=== PATIENT | male | born 1930 | race Caucasian/White ===

== ENCOUNTER 2016-10-30 10:41 | Emergency (ER) | payer OTHER ==
--- NOTE | 2016-10-30 11:10 | PDOC ---
History of Present Illness - General History Source: Patient Exam Limitations: Language Barrier - History of Present Illness Initial Comments: 10/30/16 11:51 The patient is a 86 year old male, with a significant past medical history of prostate CA, COPD, HTN, renal insufficiency, and hypercholesterolemia, who presents to the emergency department with chills, hot flashes, and diaphoresis since this morning. The patient reports around 5am, picking up his , and after was unable to sleep secondary to sweating and chills. Patient notes during this episode, noting his BP elevated. He denies any changes in vision. He denies any recent fevers, chills, headache or dizziness. He denies any recent nausea, vomit, diarrhea or constipation. He denies any recent chest pain or shortness of breath. He denies any recent dysuria, frequency, urgency or hematuria. Allergies: NKA Past surgical history: CAD s/p stents x2 Social History: Former Smoker. Denies EtOH use and recreational drug use. Primary Care Physician: <Victor Hugo Flores - Last Filed: 10/30/16 12:01> <Lashell Krishna - Last Filed: 10/30/16 18:06> - General Stated Complaint: HEAT FLASHES Time Seen by Provider: 10/30/16 10:59 Past History <Victor Hugo Flores - Last Filed: 10/30/16 12:01> - Past Medical History Anemia: No Asthma: No Cancer: Yes (prostate ca) Cardiac Disorders: Yes CVA: No COPD: Yes CHF: No Dementia: No Diabetes: No GI Disorders: No Disorders: No HTN: Yes Hypercholesterolemia: Yes Liver Disease: No Seizures: No Thyroid Disease: No - Surgical History Abdominal Surgery: No Appendectomy: No Cardiac Surgery: Yes (STENT) Cholecystectomy: Yes Lung Surgery: No Neurologic Surgery: No Orthopedic Surgery: No - Psycho/Social/Smoking Cessation Hx Anxiety: No Suicidal Ideation: No Smoking Status: Yes Smoking History: Former smoker (1-1.5 ppd for 60 yrs) Have you smoked in the past 12 months: No Number of Cigarettes Smoked Daily: 0 If you are a former smoker, when did you quit?: 2009 Hx Alcohol Use: No Drug/Substance Use Hx: No Substance Use Type: None Hx Substance Use Treatment: No <Lashell Krishna - Last Filed: 10/30/16 18:06> - Past Medical History Allergies/Adverse Reactions: Allergies Allergy/AdvReac Type Severity Reaction Status Date / Time No Known Allergies Allergy Verified 10/30/16 11:24 Home Medications: Ambulatory Orders Amlodipine Bes/Olmesartan Med [Ericka 5-20 mg Tablet] 1 each PO DAILY 03/24/15 Aspirin [Aspirin EC] 81 mg PO DAILY 03/24/15 Gabapentin 200 mg PO TID 03/24/15 Methimazole 10 mg PO DAILY 03/24/15 Metoprolol Succinate [Toprol XL -] 50 mg PO DAILY 03/24/15 Montelukast Na [Singulair -] 10 mg PO HS 03/24/15 Nitroglycerin [Nitrostat] 0.4 mg SL PRN PRN 03/24/15 Simvastatin [Zocor -] 10 mg PO DAILY 03/24/15 Lubiprostone [Amitiza] 24 mcg PO DAILY 08/29/15 Pantoprazole Sodium [Protonix -] 40 mg PO DAILY 08/29/15 Quetiapine Fumarate [Seroquel -] 25 mg PO HS 08/29/15 Review of Systems - Review of Systems Able to Perform ROS?: Yes Comments:: 10/30/16 11:50 GENERAL/CONSTITUTIONAL: +Hot flashes, diaphoresis, and chills. No: fever, weakness, loss of appetite. HEAD, EYES, EARS, NOSE AND THROAT: No: change in vision, ear pain, discharge, sore throat, throat swelling. CARDIOVASCULAR: No: chest pain, lightheadedness, palpitations, syncope RESPIRATORY: No: cough, shortness of breath, wheezing, hemoptysis, stridor. GASTROINTESTINAL: No: nausea, vomiting, diarrhea, abdominal cramping, rectal bleeding, constipation. GENITOURINARY: No: dysuria, hematuria, frequency, urgency, flank pain. MUSCULOSKELETAL: No: back pain, neck pain, joint pain, muscle swelling or pain SKIN : No: lesions, pallor, rash or easy bruising. NEUROLOGIC: No: headache, vertigo, paresthesias, weakness ENDOCRINE: No: unexplained weight gain or loss HEMATOLOGIC/LYMPHATIC: No: anemia, easy bleeding, swelling nodes. <Victor Hugo Flores - Last Filed: 10/30/16 12:01> *Physical Exam - Vital Signs Last Vital Signs Temp Pulse Resp BP Pulse Ox 97.9 F 79 20 151/87 97 10/30/16 11:24 10/30/16 11:24 10/30/16 11:24 10/30/16 11:24 10/30/16 11:24 - Physical Exam Comments: 10/30/16 12:02 GENERAL: The patient is in no acute distress. HEAD: Normal with no signs of trauma. EYES: PERRLA, EOMI, sclera anicteric, conjunctiva clear. ENT: Ears normal, nares patent, oropharynx clear without exudates. Moist mucous membranes. NECK: Normal range of motion, supple without lymphadenopathy, JVD, or masses. LUNGS: Breath sounds equal, clear to auscultation bilaterally. No wheezes, and no crackles. HEART: Regular rate and rhythm, normal S1 and S2 without murmur, rub or gallop. ABDOMEN: Soft, nontender, normoactive bowel sounds. No guarding, no rebound. No masses palpable. EXTREMITIES: Normal range of motion, no edema. No clubbing or cyanosis. No erythema, or tenderness. NEUROLOGICAL: Cranial nerves II through XII grossly intact. Normal speech. No focal neurological deficits. MUSCULOSKELETAL: Back non-tender to palpation, no CVA tenderness SKIN: Warm, Dry, normal turgor, no rashes or lesions noted. <Victor Hugo Flores - Last Filed: 10/30/16 12:01> ED Treatment Course - LABORATORY CBC & Chemistry Diagram: 10/30/16 11:53 10/30/16 11:53 <Lashell Krishna - Last Filed: 10/30/16 18:06> Medical Decision Making - Medical Decision Making 10/30/16 11:53 Pt comes with elevated BP and chills that began this AM. He states that he picked up his from the hospital today at 5AM< and when he got home, he was unable to sleep and he feels like water is runnning in his forehead. His BP on his home monitor was elevated. 10/30/16 13:[address] is normal. CXR pending Labs normal Pt will be likely discharged. 10/30/16 14:06 Pt has a positive CPK; we will get a second set on the patient. 10/30/16 18:05 Second cardiac enzyme is normal; pt has 2 normal EKGs. No change of EKG 10/30/16 18:05 Stable for discahrge home. <Lashell Krishna - Last Filed: 10/30/16 18:06> *DC/Admit/Observation/Transfer - Attestations Scribe Attestion: 10/30/16 11:43 Documentation prepared by Victor Hugo Flores, acting as medical instrument technician for Lashell Krishna MD. <Victor Hugo Flores - Last Filed: 10/30/16 12:01> - Discharge Dispostion Admit: No <Lashell Krishna - Last Filed: 10/30/16 18:06> Diagnosis at time of Disposition: Chills, Diaphoresis - Discharge Dispostion Disposition: HOME Condition at time of disposition: Improved - Referrals Referrals: Hugo Crespo MD [Primary Care Provider] - - Patient Instructions Printed Discharge Instructions: DI for High Blood Pressure, How to Monitor Your Blood Pressure at Home
[2016-10-30 11:37] VITALS: BMI 27.4
[2016-10-30] MEDS ORDERED: VALSARTAN 40 MG TABLET (FP) PO ONE (11:51)
[2016-10-30] MEDS ORDERED: POLYETHYLENE GLYCOL 3350 119 GM BTL PO ONE (12:02)
[2016-10-30 12:36] LABS: BASOPHIL 1.2 % (0-2.0); EOSINOPHIL 1.4 % (0-4.5); MCH 26.4 pg (25.7-33.7); MCHC 32.3 g/dl (32.0-35.9); MEAN CELL VOLUME 81.7 fl (80-96); MEAN PLT VOLUME 7.7 fl (7.5-11.1); NEUTROPHILS 77.6 % (42.8-82.8); PLATELET COUNT 267 K/MM3 (134-434); RDW 14.7 % (11.9-15.9); WHITE BLOOD COUNT 7.2 K/mm3 (4.0-10.0)
--- NOTE | 2016-10-30 12:38 | EKG ---
Test Reason : Blood Pressure : / mmHG Vent. Rate : 061 BPM Atrial Rate : 061 BPM P-R Int : 146 ms QRS Dur : 084 ms QT Int : 428 ms P-R-T Axes : 063 013 052 degrees QTc Int : 430 ms NORMAL SINUS RHYTHM , QS IN V2 MAY BE DUE TO TECHNICAL AND/OR POSITIONAL FACTORS, POSSIBILITY OF ANTEROSEPTAL CO CANNOT BE EXCLUDED WHEN COMPARED WITH ECG OF 29-AUG-2015 17:56, CHANGES MENTIOED ABOVE. CORELATE CLINICALLY. Confirmed by TOO SANTANA MD ([id number]) on 10/30/2016 12:38:28 PM Referred By: Confirmed By:TOO SANTANA MD
[2016-10-30 12:49] LABS: INR 1.12 (0.82-1.09); PROTHROMBIN TIME (PATIENT) 12.3 SEC (9.98-11.88)
[2016-10-30 13:01] LABS: ALBUMIN 3.9 g/dl (3.4-5.0); ANION GAP 9 (8-16); BILIRUBIN,TOTAL 0.5 mg/dL (0.2-1.0); CALCIUM 8.5 mg/dL (8.5-10.1); CO2 29 mmol/L (21-32); CREATININE 1.2 mg/dL (0.7-1.3); GLUCOSE,RANDOM 116 mg/dL (74-106); SGOT/AST 17 U/L (15-37); SGPT/ALT 23 U/L (12-78); TOT PROT 7.3 g/dl (6.4-8.2)
[2016-10-30 13:04] LABS: ALK PHOS 99 U/L (45-117); TROPONIN I < 0.02 ng/ml (0.00-0.05)
[2016-10-30] MEDS ORDERED: VALSARTAN 80 MG TABLET (UD) ONE (13:05)
[2016-10-30 14:47] VITALS: PULSE 70
[2016-10-30] MEDS ORDERED: ACETAMINOPHEN 325 MG TABLET (FP) PO ONE (16:36)
[2016-10-30] MEDS ORDERED: ACETAMINOPHEN 325 MG TABLET (FP) ONE (16:40)
[2016-10-30 16:46] VITALS: TEMP 98.5
[2016-10-30 17:35] LABS: TROPONIN I < 0.02 ng/ml (0.00-0.05)
[2016-10-30 17:47] VITALS: BP 147/76
--- NOTE | 2016-10-31 11:49 | EKG ---
Test Reason : Blood Pressure : / mmHG Vent. Rate : 064 BPM Atrial Rate : 064 BPM P-R Int : 140 ms QRS Dur : 080 ms QT Int : 420 ms P-R-T Axes : 068 013 058 degrees QTc Int : 433 ms NORMAL SINUS RHYTHM NORMAL ECG WHEN COMPARED WITH ECG OF 30-OCT-2016 11:38, NO SIGNIFICANT CHANGE WAS FOUND Confirmed by ASHTYN JEFF MD ([id number]) on 10/31/2016 11:49:17 AM Referred By: Confirmed By:ASHTYN JEFF MD
== END 2016-10-30 18:37 | disposition home or self-care (01) ==
LOC: JER 10:41
DX: I25.10 Atherosclerotic heart disease of native coronary artery without angina pectoris (principal); I10 Essential (primary) hypertension; Z95.5 Presence of coronary angioplasty implant and graft; E78.00 Pure hypercholesterolemia, unspecified; J44.9 Chronic obstructive pulmonary disease, unspecified; Z87.891 Personal history of nicotine dependence; Z85.46 Personal history of malignant neoplasm of prostate
CPT/HCPCS: 36415; 70450-TC; 71020-TC; 80053; 82550; 82553; 84484; 85025; 85610; 93005; 93010; 99284-25

== ENCOUNTER 2017-02-14 06:10 | Emergency (ER) | payer OTHER ==
[2017-02-14 06:34] VITALS: TEMP 98.7; BMI 24.9
[2017-02-14 06:39] LABS: BASOPHIL 1.1 % (0-2.0); EOSINOPHIL 5.2 % (0-4.5); MCH 26.5 pg (25.7-33.7); MEAN CELL VOLUME 80.3 fl (80-96); MEAN PLT VOLUME 6.9 fl (7.5-11.1); NEUTROPHILS 64.8 % (42.8-82.8); PLATELET COUNT 400 K/MM3 (134-434); WHITE BLOOD COUNT 6.9 K/mm3 (4.0-10.0)
--- NOTE | 2017-02-14 06:51 | PDOC ---
History of Present Illness - General Stated Complaint: CHEST PAIN History Source: Patient - History of Present Illness Initial Comments: 02/14/17 06:48 Patient is an 86 y.o. male with a PMH of HTN, CAD (s/p stent) who present with acute onset of chest pain that woke him from sleeping. Patient denies any associated diaphoresis, lightheadedness, shortness of breath or palpitations. Patient took two sublingual nitroglycerin and the chest pain largely resolved, however he came to ED at his 's request. Past History - Past Medical History Allergies/Adverse Reactions: Allergies Allergy/AdvReac Type Severity Reaction Status Date / Time No Known Allergies Allergy Verified 02/14/17 06:32 Home Medications: Ambulatory Orders Amlodipine Bes/Olmesartan Med [Ericka 5-20 mg Tablet] 1 each PO DAILY 03/24/15 Aspirin [Aspirin EC] 81 mg PO DAILY 03/24/15 Gabapentin 200 mg PO TID 03/24/15 Methimazole 10 mg PO DAILY 03/24/15 Metoprolol Succinate [Toprol XL -] 50 mg PO DAILY 03/24/15 Montelukast Na [Singulair -] 10 mg PO HS 03/24/15 Nitroglycerin [Nitrostat] 0.4 mg SL PRN PRN 03/24/15 Simvastatin [Zocor -] 10 mg PO DAILY 03/24/15 Lubiprostone [Amitiza] 24 mcg PO DAILY 08/29/15 Pantoprazole Sodium [Protonix -] 40 mg PO DAILY 08/29/15 Quetiapine Fumarate [Seroquel -] 25 mg PO HS 08/29/15 Anemia: No Asthma: No Cancer: Yes (prostate ca) Cardiac Disorders: Yes CVA: No COPD: Yes CHF: No Dementia: No Diabetes: No GI Disorders: No Disorders: No HTN: Yes Hypercholesterolemia: Yes Liver Disease: No Seizures: No Thyroid Disease: No - Surgical History Abdominal Surgery: No Appendectomy: No Cardiac Surgery: Yes (STENT) Cholecystectomy: Yes Lung Surgery: No Neurologic Surgery: No Orthopedic Surgery: No - Immunization History Immunization Up to Date: Yes - Suicide/Smoking/Psychosocial Hx Smoking Status: Yes Smoking History: Never smoked Have you smoked in the past 12 months: No Number of Cigarettes Smoked Daily: 0 If you are a former smoker, when did you quit?: 2009 Information on smoking cessation initiated: No Hx Alcohol Use: No Drug/Substance Use Hx: No Substance Use Type: None Hx Substance Use Treatment: No Review of Systems - Review of Systems Constitutional: No: Chills, Diaphoresis, Fever Respiratory: No: Shortness of Breath Cardiac (ROS): Yes: Chest Pain. No: Lightheadedness, Palpitations ABD/GI: No: Constipated, Diarrhea, Nausea, Vomiting All Other Systems: Reviewed and Negative *Physical Exam - Vital Signs Last Vital Signs Temp Pulse Resp BP Pulse Ox 98.7 F 75 14 119/73 98 02/14/17 06:32 02/14/17 06:32 02/14/17 06:32 02/14/17 06:32 02/14/17 06:32 - Physical Exam General Appearance: Yes: Nourished Neck: positive: Trachea midline, Supple Respiratory/Chest: positive: Lungs Clear Cardiovascular: positive: S1, S2 Gastrointestinal/Abdominal: positive: Normal Bowel Sounds, Soft Extremity: positive: Normal Capillary Refill, Normal Inspection Integumentary: positive: Normal Color, Dry, Warm Neurologic: positive: Fully Oriented, Alert ED Treatment Course - LABORATORY CBC & Chemistry Diagram: 02/14/17 06:21 02/14/17 06:21 - ADDITIONAL ORDERS Additional order review: 02/14/17 06:21 RBC 4.42 MCV 80.3 MCHC 33.0 RDW 15.0 MPV 6.9 L Neutrophils % 64.8 Lymphocytes % 21.0 Monocytes % 7.9 Eosinophils % 5.2 H Basophils % 1.1
[2017-02-14 07:08] LABS: INR 1.12 (0.82-1.09); PROTHROMBIN TIME (PATIENT) 12.7 SEC (9.98-11.88)
[2017-02-14 07:11] LABS: ACTIVATED PTT 37.4 SECONDS (26.9-34.4)
[2017-02-14 07:18] LABS: ANION GAP 7 (8-16); BILIRUBIN,TOTAL 0.4 mg/dL (0.2-1.0); CALCIUM 8.3 mg/dL (8.5-10.1); CO2 27 mmol/L (21-32); CREATININE 1.3 mg/dL (0.7-1.3); GLUCOSE,RANDOM 113 mg/dL (74-106); MAGNESIUM 2.1 mg/dL (1.8-2.4); SGOT/AST 25 U/L (15-37); SGPT/ALT 29 U/L (12-78); TOT PROT 6.4 g/dl (6.4-8.2)
[2017-02-14 07:20] LABS: ALK PHOS 83 U/L (45-117); TROPONIN I < 0.02 ng/ml (0.00-0.05)
--- NOTE | 2017-02-14 07:26 | PDOC ---
Attending Attestation - Resident Resident Name: Koby Taveras - ED Attending Attestation I have performed the following: I have examined & evaluated the patient, The case was reviewed & discussed with the resident, I agree w/resident's findings & plan, Exceptions are as noted - Medical Decision Making 02/14/17 07:25 I, Dr. Marta Kerr, DO, attest that this document has been prepared under my direction and personally reviewed by me in its entirety. I further attest, that it accurately reflects all work, treatment, procedures and medical decision -making performed by me.
--- NOTE | 2017-02-14 08:19 | PDOC ---
History of Present Illness - General History Source: Patient Exam Limitations: No Limitations - History of Present Illness Initial Comments: 02/14/17 08:24 The patient is a 86 year old male, with a significant past medical history of prostate CA, COPD, HTN, renal insufficiency, and hypercholesterolemia, who presents to the emergency department with left sided chest pain since this morning. The patient reports having a 30 min episode of chest pain this morning that was alleviated with one treatment of nitro. Patient reports during this episode having no radiation of his pain, and ranks his chest during that episode a 8/10 in pain intensity. Patient notes since having no chest pain at this time but has complaints of SOB and a productive cough, bringing up white septum. He also has complaints of nausea and abdominal bloating for the past 2 days. Reports having normal bowel movements. He denies any recent fevers, chills , headache or dizziness. He denies any recent vomit, diarrhea or constipation. He denies any recent dysuria, frequency, urgency or hematuria. Allergies: NKA Past surgical history: None reported. Social History: Nonsmoker. Denies EtOH use and recreational drug use. Primary Care Physician: <Victor Hugo Flores - Last Filed: 02/14/17 08:24> <Marta Kerr - Last Filed: 02/14/17 10:05> - General Chief Complaint: Chest Pain Stated Complaint: CHEST PAIN Time Seen by Provider: 02/14/17 06:12 Past History <Victor Hugo Flores - Last Filed: 02/14/17 08:24> - Past Medical History Anemia: No Asthma: No Cancer: Yes (prostate ca) Cardiac Disorders: Yes CVA: No COPD: Yes CHF: No Dementia: No Diabetes: No GI Disorders: No Disorders: No HTN: Yes Hypercholesterolemia: Yes Liver Disease: No Seizures: No Thyroid Disease: No - Surgical History Abdominal Surgery: No Appendectomy: No Cardiac Surgery: Yes (STENT) Cholecystectomy: Yes Lung Surgery: No Neurologic Surgery: No Orthopedic Surgery: No - Immunization History Immunization Up to Date: Yes - Suicide/Smoking/Psychosocial Hx Smoking Status: Yes Smoking History: Never smoked Have you smoked in the past 12 months: No Number of Cigarettes Smoked Daily: 0 If you are a former smoker, when did you quit?: 2009 Information on smoking cessation initiated: No Hx Alcohol Use: No Drug/Substance Use Hx: No Substance Use Type: None Hx Substance Use Treatment: No <Marta Kerr - Last Filed: 02/14/17 10:05> - Past Medical History Allergies/Adverse Reactions: Allergies Allergy/AdvReac Type Severity Reaction Status Date / Time No Known Allergies Allergy Verified 02/14/17 06:32 Home Medications: Ambulatory Orders Amlodipine Bes/Olmesartan Med [Ericka 5-20 mg Tablet] 1 each PO DAILY 03/24/15 Aspirin [Aspirin EC] 81 mg PO DAILY 03/24/15 Gabapentin 200 mg PO TID 03/24/15 Methimazole 10 mg PO DAILY 03/24/15 Metoprolol Succinate [Toprol XL -] 50 mg PO DAILY 03/24/15 Montelukast Na [Singulair -] 10 mg PO HS 03/24/15 Nitroglycerin [Nitrostat] 0.4 mg SL PRN PRN 03/24/15 Simvastatin [Zocor -] 10 mg PO DAILY 03/24/15 Lubiprostone [Amitiza] 24 mcg PO DAILY 08/29/15 Pantoprazole Sodium [Protonix -] 40 mg PO DAILY 08/29/15 Quetiapine Fumarate [Seroquel -] 25 mg PO HS 08/29/15 Review of Systems - Review of Systems Able to Perform ROS?: Yes Comments:: 02/14/17 08:24 GENERAL/CONSTITUTIONAL: No fever or chills. No weakness. HEAD, EYES, EARS, NOSE AND THROAT: No change in vision. No ear pain or discharge. No sore throat. GASTROINTESTINAL: +nausea No vomiting, diarrhea or constipation. GENITOURINARY: No dysuria, frequency, or change in urination. CARDIOVASCULAR: +chest pain and shortness of breath. RESPIRATORY: +cough No wheezing, or hemoptysis. MUSCULOSKELETAL: No joint or muscle swelling or pain. No neck or back pain. SKIN: No rash NEUROLOGIC: No headache, vertigo, loss of consciousness, or change in strength/ sensation. ENDOCRINE: No increased thirst. No abnormal weight change. HEMATOLOGIC/LYMPHATIC: No anemia, easy bleeding, or history of blood clots. ALLERGIC/IMMUNOLOGIC: No hives or skin allergy. <Victor Hugo Flores - Last Filed: 02/14/17 08:24> *Physical Exam - Vital Signs Last Vital Signs Temp Pulse Resp BP Pulse Ox 98.7 F 75 14 119/73 98 02/14/17 06:32 02/14/17 06:32 02/14/17 06:32 02/14/17 06:32 02/14/17 06:32 - Physical Exam Comments: 02/14/17 08:24 Constitutional: Awake, alert, oriented. No acute distress. Head: Normocephalic. Atraumatic Eyes: PERRL. EOMI. Conjunctivae are not pale. ENT: Mucous membranes are moist and intact. Posterior pharynx without exudates or erythema. Uvula midline. Neck: Supple. Full ROM. No lymphadenopathy. Cardiovascular: Regular rate. Regular rhythm. S1, S2 regular. Distal pulses are 2+ and symmetric. Pulmonary/Chest: No evidence of respiratory distress. Clear to auscultation bilaterally No wheezing, rales or rhonchi. +Tachypneic. Abdominal: Soft and non-distended. Mild diffuse tenderness. No rebound, guarding or rigidity. No organomegaly. No palpable masses. Good bowel sounds. Back: No CVA tenderness. Musculoskeletal: No edema. No cyanosis. No clubbing. Full range of motion in all extremities. Nocalf tenderness. Radial/pedal pulses are intact and 2+ bilaterally Skin: Skin is warm and dry. No petechiae. No purpura. Neurological: Alert and oriented to person, place, and time. Cranial nerves II -XII are grossly intact. Normal speech. Strength is grossly symmetric. No sensory deficits. Psychiatric: Good eye contact. Normal interaction, affect and behavior. <Victor Hugo Flores - Last Filed: 02/14/17 08:24> - Vital Signs Last Vital Signs Temp Pulse Resp BP Pulse Ox 98.7 F 75 14 119/73 98 02/14/17 06:32 02/14/17 06:32 02/14/17 06:32 02/14/17 06:32 02/14/17 06:32 <Marta Kerr - Last Filed: 02/14/17 10:05> Heart Score/ECG Review - ECG Intrepretation Comment:: 02/14/17 08:16 sinus at 75, nl axis, nl interval, no acute st/t wave findings <Marta Kerr - Last Filed: 02/14/17 10:05> ED Treatment Course - LABORATORY CBC & Chemistry Diagram: 02/14/17 06:21 02/14/17 06:21 - ADDITIONAL ORDERS Additional order review: Laboratory Results 02/14/17 02/14/17 06:21 06:21 PT with INR 12.70 H INR 1.12 PTT (Actin FS) 37.4 H Sodium 139 Potassium 4.0 Chloride 105 Carbon Dioxide 27 Anion Gap 7 L BUN 16 D Creatinine 1.3 Creat Clearance w eGFR 52.59 Random Glucose 113 H Calcium 8.3 L Magnesium 2.1 Total Bilirubin 0.4 AST 25 D ALT 29 Alkaline Phosphatase 83 Troponin I < 0.02 Total Protein 6.4 Albumin 3.0 L 02/14/17 06:21 RBC 4.42 MCV 80.3 MCHC 33.0 RDW 15.0 MPV 6.9 L Neutrophils % 64.8 Lymphocytes % 21.0 Monocytes % 7.9 Eosinophils % 5.2 H Basophils % 1.1 <Victor Hugo Flores - Last Filed: 02/14/17 08:24> - LABORATORY CBC & Chemistry Diagram: 02/14/17 06:21 02/14/17 06:21 - ADDITIONAL ORDERS Additional order review: Laboratory Results 02/14/17 02/14/17 06:21 06:21 PT with INR 12.70 H INR 1.12 PTT (Actin FS) 37.4 H Sodium 139 Potassium 4.0 Chloride 105 Carbon Dioxide 27 Anion Gap 7 L BUN 16 D Creatinine 1.3 Creat Clearance w eGFR 52.59 Random Glucose 113 H Calcium 8.3 L Magnesium 2.1 Total Bilirubin 0.4 AST 25 D ALT 29 Alkaline Phosphatase 83 Troponin I < 0.02 Total Protein 6.4 Albumin 3.0 L 02/14/17 06:21 RBC 4.42 MCV 80.3 MCHC 33.0 RDW 15.0 MPV 6.9 L Neutrophils % 64.8 Lymphocytes % 21.0 Monocytes % 7.9 Eosinophils % 5.2 H Basophils % 1.1 <Marta Kerr - Last Filed: 02/14/17 10:05> Medical Decision Making - Medical Decision Making 02/14/17 08:14 a/p: 86yo male with CP that woke him up this AM - L sided cp resolved with nitro -labs -trops -ekg -cxr -pain and nausea control -reassess 02/14/17 09:58 re-eval. discussed lab and imaging results. Pt states he feels better. Mild dyspnea. Denies cp. States he doesn't want to stay for further eval. States he will call Dr. Crespo and will follow up with him today. Discussed his pleural effusion on xray. Discussed need to stay for further eval. Discussed need for futher eval of CP. Discussed he needs to follow up with his [employer] [facility] developer. Pt states he wants to sign out AMA. Pt understands all risk of signing out AMA. Discussed all risks with signing out AMA. Pt state he understands and wants to sign out AMA. <Marta Kerr - Last Filed: 02/14/17 10:05> *DC/Admit/Observation/Transfer - Attestations Scribe Attestion: 02/14/17 08:25 Documentation prepared by Victor Hugo Flores, acting as medical superintendent for Marta Kerr DO. <Victor Hugo Flores - Last Filed: 02/14/17 08:24> - Discharge Dispostion Admit: No - Attestations Physician Attestion: 02/14/17 10:05 I, Dr. Marta Kerr DO, attest that this document has been prepared under my direction and personally reviewed by me in its entirety. I further attest, that it accurately reflects all work, treatment, procedures and medical decision -making performed by me. <Marta Kerr - Last Filed: 02/14/17 10:05> Diagnosis at time of Disposition: Chest pain, SOB (shortness of breath), Pleural effusion on left - Discharge Dispostion Disposition: AGAINST MEDICAL ADVICE Condition at time of disposition: Unchanged/Unknown - Referrals Referrals: Hugo Crespo MD [Staff Physician] - - Patient Instructions Printed Discharge Instructions: DI for Chest Pain Additional Instructions: Please call your [employer] er[facility] developer today for follow up. Please follow up with your PMD today. Please return to the ED with any further complaints. Please return to the ED if the chest pain continues.
[2017-02-14] MEDS ORDERED: ASPIRIN 81 MG CHEWABLE TABLETS PO ONE (08:24)
[2017-02-14] MEDS ORDERED: ACETAMINOPHEN 325 MG TABLET (FP) PO ONE (08:24)
[2017-02-14] MEDS ORDERED: ACETAMINOPHEN 325 MG TABLET (FP) ONE (08:42)
[2017-02-14] MEDS ORDERED: ASPIRIN 81 MG CHEWABLE TABLETS ONE (08:42)
[2017-02-14 10:28] VITALS: BP 141/75; PULSE 89
--- NOTE | 2017-02-14 17:17 | EKG ---
Test Reason : Blood Pressure : / mmHG Vent. Rate : 075 BPM Atrial Rate : 075 BPM P-R Int : 132 ms QRS Dur : 076 ms QT Int : 406 ms P-R-T Axes : 058 031 067 degrees QTc Int : 453 ms NORMAL SINUS RHYTHM NORMAL ECG WHEN COMPARED WITH ECG OF 30-OCT-2016 17:00, NO SIGNIFICANT CHANGE WAS FOUND Confirmed by PREM WOO MD ([id number]) on 02/14/2017 5:16:48 PM Referred By: Confirmed By:PRME WOO MD
== END 2017-02-14 10:29 | disposition left against medical advice (07) ==
LOC: JER 06:10
DX: J90 Pleural effusion, not elsewhere classified (principal); I10 Essential (primary) hypertension; J44.9 Chronic obstructive pulmonary disease, unspecified; N28.9 Disorder of kidney and ureter, unspecified; Z85.46 Personal history of malignant neoplasm of prostate
CPT/HCPCS: 36415; 71020-TC; 80053; 83735; 84484; 85025; 85610; 85730; 86850; 86900; 86901; 93005; 93010; 99283-25

== ENCOUNTER 2017-03-10 23:42 | Emergency (ER) | payer OTHER ==
--- NOTE | 2017-03-10 23:57 | PDOC ---
History of Present Illness <Lashell Krishna - Last Filed: 03/11/17 01:15> - General History Source: Patient Exam Limitations: No Limitations - History of Present Illness Initial Comments: 03/11/17 01:57 Patient is a 86 year old male with a significant past medical history of prostate CA, COPD, HTN, renal insufficiency, and hypercholesterolemia who presents to the ED with complaints of right tooth pain that began yesterday afternoon. Patient reports experiencing sudden onset of right sided tooth pain that began yesterday afternoon while at home. He reports pain is currently a 3/ 10 in intensity, but states no external stimulus increases pain. Patient reports pain radiates from lower teeth incisors to molars on right side. He reports taking Percocet x3 for tooth pain with slight relief. Patient reports Percocet ingested were left over from previous back injury. Denies swallowing issues, troubled breathing. Denies chest pain. Vomiting, nausea. Denies fever, chills. Denies trauma to affected area. Denies out of state travel, contact with sick individuals. Denies any other symptoms. Allergies: None Social history: Lives with . No smoking. No alcohol. No illicit drug use. Surgical history: None PMD: <Raza Ny - Last Filed: 03/11/17 01:58> - General Stated Complaint: PAIN Time Seen by Provider: 03/10/17 23:57 Past History - Past Medical History Anemia: No Asthma: No Cancer: Yes (prostate ca) Cardiac Disorders: Yes CVA: No COPD: Yes CHF: No Dementia: No Diabetes: No GI Disorders: No Disorders: No HTN: Yes Hypercholesterolemia: Yes Liver Disease: No Seizures: No Thyroid Disease: No - Surgical History Abdominal Surgery: No Appendectomy: No Cardiac Surgery: Yes (STENT) Cholecystectomy: Yes Lung Surgery: No Neurologic Surgery: No Orthopedic Surgery: No - Immunization History Immunization Up to Date: Yes - Suicide/Smoking/Psychosocial Hx Smoking Status: Yes Smoking History: Never smoked Have you smoked in the past 12 months: No Number of Cigarettes Smoked Daily: 0 If you are a former smoker, when did you quit?: 2009 Hx Alcohol Use: No Drug/Substance Use Hx: No Substance Use Type: None Hx Substance Use Treatment: No <Lashell Krishna - Last Filed: 03/11/17 01:15> <Raza Ny - Last Filed: 03/11/17 01:58> - Past Medical History Allergies/Adverse Reactions: Allergies Allergy/AdvReac Type Severity Reaction Status Date / Time No Known Allergies Allergy Verified 03/10/17 23:57 Home Medications: Ambulatory Orders Amlodipine Bes/Olmesartan Med [Ericka 5-20 mg Tablet] 1 each PO DAILY 03/24/15 Aspirin [Aspirin EC] 81 mg PO DAILY 03/24/15 Gabapentin 200 mg PO TID 03/24/15 Methimazole 10 mg PO DAILY 03/24/15 Metoprolol Succinate [Toprol XL -] 50 mg PO DAILY 03/24/15 Montelukast Na [Singulair -] 10 mg PO HS 03/24/15 Nitroglycerin [Nitrostat] 0.4 mg SL PRN PRN 03/24/15 Simvastatin [Zocor -] 10 mg PO DAILY 03/24/15 Lubiprostone [Amitiza] 24 mcg PO DAILY 08/29/15 Pantoprazole Sodium [Protonix -] 40 mg PO DAILY 08/29/15 Quetiapine Fumarate [Seroquel -] 25 mg PO HS 08/29/15 Oxycodone HCl/Acetaminophen [Percocet 5/325 -] 1 tab PO Q6H #20 tablet MDD 4 Penicillin V Potassium [Pen Vee K -] 250 mg PO QID #28 tablet 03/11/17 Penicillin V Potassium [Pen Vee K -] 250 mg PO QID #28 tablet 03/11/17 Review of Systems - Review of Systems Able to Perform ROS?: Yes Comments:: 03/11/17 01:57 GENERAL/CONSTITUTIONAL: No fever or chills. No weakness. HEAD, EYES, EARS, NOSE AND THROAT: +Lower tooth pain. No change in vision. No ear pain or discharge. No sore throat. CARDIOVASCULAR: No chest pain or shortness of breath. RESPIRATORY: No cough, wheezing, or hemoptysis. GASTROINTESTINAL: No nausea, vomiting, diarrhea or constipation. GENITOURINARY: No dysuria, frequency, or change in urination. MUSCULOSKELETAL: No joint or muscle swelling or pain. No neck or back pain. SKIN: No rash NEUROLOGIC: No headache, vertigo, loss of consciousness, or change in strength/ sensation. ENDOCRINE: No increased thirst. No abnormal weight change. HEMATOLOGIC/LYMPHATIC: No anemia, easy bleeding, or history of blood clots. ALLERGIC/IMMUNOLOGIC: No hives or skin allergy. All Other Systems: Reviewed and Negative <Raza Ny - Last Filed: 03/11/17 01:58> *Physical Exam - Vital Signs Last Vital Signs Temp Pulse Resp BP Pulse Ox 89 14 146/67 97 03/10/17 23:57 03/10/17 23:57 03/10/17 23:57 03/10/17 23:57 - Physical Exam Comments: 03/11/17 01:57 GENERAL: Awake, alert, and fully oriented, in no acute distress HEAD: No signs of trauma EYES: PERRLA, EOMI, sclera anicteric, conjunctiva clear ENT: +One right molar with filling in back. +Missing 3 lower teeth. +Redness of gums. No swelling. Auricles normal inspection, hearing grossly normal, nares patent, oropharynx clear without exudates. Moist mucosa NECK: Normal ROM, supple, no lymphadenopathy, JVD, or masses LUNGS: Breath sounds equal, clear to auscultation bilaterally. No wheezes, and no crackles HEART: Regular rate and rhythm, normal S1 and S2, no murmurs, rubs or gallops ABDOMEN: Soft, nontender, normoactive bowel sounds. No guarding, no rebound. No masses EXTREMITIES: Normal range of motion, no edema. No clubbing or cyanosis. No cords, erythema, or tenderness NEUROLOGICAL: Cranial nerves II through XII grossly intact. Normal speech, normal gait SKIN: Warm, Dry, normal turgor, no rashes or lesions noted. <Raza Ny - Last Filed: 03/11/17 01:58> ED Treatment Course - Medications Given in the ED: ED Medications Discontinued Medications Generic Name Dose Route Start Last Admin Trade Name Freq PRN Reason Stop Dose Admin Ketorolac Tromethamine 60 mg 03/11/17 00:42 03/11/17 00:55 Toradol Injection - IM 03/11/17 00:43 60 mg ONCE ONE Administration Penicillin V Potassium 500 mg 03/11/17 00:37 03/11/17 01:00 Pen Vee K - PO 03/11/17 00:38 500 mg ONCE ONE Administration <Raza yN - Last Filed: 03/11/17 01:58> *DC/Admit/Observation/Transfer - Discharge Dispostion Admit: No <Lashell Krishna - Last Filed: 03/11/17 01:15> - Attestations Scribe Attestion: 03/11/17 01:58 Documentation prepared by Raza Ny, acting as medical record administrator for Lashell Krishna MD/DO. <Raza Ny - Last Filed: 03/11/17 01:58> Diagnosis at time of Disposition: Dental caries - Discharge Dispostion Disposition: HOME Condition at time of disposition: Stable - Prescriptions Prescriptions: Oxycodone HCl/Acetaminophen [Percocet 5/325 -] 1 tab PO Q6H #20 tablet MDD 4 Penicillin V Potassium [Pen Vee K -] 250 mg PO QID #28 tablet Penicillin V Potassium [Pen Vee K -] 250 mg PO QID #28 tablet - Patient Instructions Printed Discharge Instructions: DI for Dental Pain
[2017-03-10 23:59] VITALS: BP 146/67; PULSE 89; BMI 28.3
[2017-03-11] MEDS ORDERED: PENICILLIN V POTASSIUM 500 MG TABLET PO ONE (00:37)
[2017-03-11] MEDS ORDERED: KETOROLAC TROMETHAMINE 60 MG/2 ML VIAL IM ONE (00:42)
[2017-03-11] MEDS ORDERED: KETOROLAC TROMETHAMINE 60 MG/2 ML VIAL ONE (00:51)
== END 2017-03-11 01:29 | disposition home or self-care (01) ==
LOC: JER 23:42
PROC: 3E0233Z Introduction of Anti-inflammatory into Muscle, Percutaneous Approach (ICD-10-PCS; principal; 2017-03-10)
DX: K02.9 Dental caries, unspecified (principal); I25.10 Atherosclerotic heart disease of native coronary artery without angina pectoris; I13.10 Hypertensive heart and chronic kidney disease without heart failure, with stage 1 through stage 4 chronic kidney disease, or unspecified chronic kidney disease; N18.9 Chronic kidney disease, unspecified; Z95.5 Presence of coronary angioplasty implant and graft; E78.00 Pure hypercholesterolemia, unspecified; J44.9 Chronic obstructive pulmonary disease, unspecified; Z85.46 Personal history of malignant neoplasm of prostate; Z90.49 Acquired absence of other specified parts of digestive tract
CPT/HCPCS: 96372; 99281-25

== ENCOUNTER 2019-06-17 10:45 | Inpatient (IN) | payer OTHER ==
[2019-06-17 10:52] VITALS: TEMP 98; BMI 25.7
[2019-06-17 11:53] VITALS: BP 152/62; PULSE 92
[2019-06-17 13:09] LABS: BASO % 0.2 % (0-2.0); EOS % 0.1 % (0-4.5); HEMATOCRIT 29.9 % (35.4-49); HEMOGLOBIN 9.8 GM/dL (11.7-16.9); LYMPH % 10.7 % (8-40); MCH 28.1 pg (25.7-33.7); MCHC 32.6 g/dl (32.0-35.9); MEAN CELL VOLUME 86.2 fl (80-96); MEAN PLT VOLUME 7.1 fl (7.5-11.1); MONO % 8.5 % (3.8-10.2); NEUT % 80.5 % (42.8-82.8); PLATELET COUNT 309 K/MM3 (134-434); RBC 3.47 M/mm3 (4.00-5.60); RDW 14.9 % (11.9-15.9); WHITE BLOOD COUNT 8.5 K/mm3 (4.0-10.0)
--- NOTE | 2019-06-17 13:21 | PDOC ---
Documentation entered by Geovanny López SCRIBE, acting as scribe for Leanna Mckay MD. Leanna Mckay MD: This documentation has been prepared by the Rene mcneal Xhesika, SCRIBE, under my direction and personally reviewed by me in its entirety. I confirm that the documentation accurately reflects all work, treatment, procedures, and medical decision making performed by me. History of Present Illness - General Chief Complaint: Blood Sugar Problem Stated Complaint: LOW SHUGAR History Source: Patient Exam Limitations: No Limitations - History of Present Illness Initial Comments: 06/17/19 12:19 The patient is an 88 year old male with a significant PMH of Prostate CA, COPD , HTN, renal insufficiency, and HLD who presents to the emergency department for low blood sugar since yesterday. The patient states he checked his BG last night and it was 2. Pt reports associated dizziness, sweats and chills. Pt states he has an appointment with Dr. Canas tomorrow. The patient denies chest pain, shortness of breath. Denies fever, cough, nausea , vomiting, diarrhea and constipation. Denies dysuria, frequency, urgency and hematuria. Allergies: NKDA PCP: Dr. Canas 06/17/19 13:56 Past History - Past Medical History Allergies/Adverse Reactions: Allergies Allergy/AdvReac Type Severity Reaction Status Date / Time No Known Allergies Allergy Verified 06/17/19 10:51 Home Medications: Ambulatory Orders Amlodipine Bes/Olmesartan Med [Ericka 5-20 mg Tablet] 1 each PO DAILY 03/24/15 Aspirin [Aspirin EC] 81 mg PO DAILY 03/24/15 Gabapentin 200 mg PO TID 03/24/15 Methimazole 10 mg PO DAILY 03/24/15 Metoprolol Succinate [Toprol XL -] 50 mg PO DAILY 03/24/15 Montelukast Na [Singulair -] 10 mg PO HS 03/24/15 Nitroglycerin [Nitrostat] 0.4 mg SL PRN PRN 03/24/15 Simvastatin [Zocor -] 10 mg PO DAILY 03/24/15 Lubiprostone [Amitiza] 24 mcg PO DAILY 08/29/15 Pantoprazole Sodium [Protonix -] 40 mg PO DAILY 05/09/16 Quetiapine Fumarate [Seroquel -] 25 mg PO HS 08/29/15 Oxycodone HCl/Acetaminophen [Percocet 5/325 -] 1 tab PO Q6H #20 tablet MDD 4 Penicillin V Potassium [Pen Vee K -] 250 mg PO QID #28 tablet 03/11/17 Penicillin V Potassium [Pen Vee K -] 250 mg PO QID #28 tablet 03/11/17 Anemia: No Asthma: No Cancer: Yes (prostate ca) Cardiac Disorders: Yes CVA: No COPD: Yes CHF: No Dementia: No Diabetes: No GI Disorders: No Disorders: No HTN: Yes Hypercholesterolemia: Yes Liver Disease: No Seizures: No Thyroid Disease: No - Surgical History Abdominal Surgery: No Appendectomy: No Cardiac Surgery: Yes (STENT) Cholecystectomy: Yes Lung Surgery: No Neurologic Surgery: No Orthopedic Surgery: No - Immunization History Immunization Up to Date: Yes - Psycho Social/Smoking Cessation Hx Smoking Status: Yes Smoking History: Never smoked Have you smoked in the past 12 months: No Number of Cigarettes Smoked Daily: 0 If you are a former smoker, when did you quit?: 2009 Information on smoking cessation initiated: No Hx Alcohol Use: No Drug/Substance Use Hx: No Substance Use Type: None Hx Substance Use Treatment: No Review of Systems - Review of Systems Able to Perform ROS?: Yes Comments:: 06/17/19 12:20 GENERAL/CONSTITUTIONAL: No fever. No weakness. +low blood sugar. +chills. + sweats HEAD, EYES, EARS, NOSE AND THROAT: No change in vision. No ear pain or discharge. No sore throat. CARDIOVASCULAR: No chest pain or shortness of breath. RESPIRATORY: No cough, wheezing, or hemoptysis. GASTROINTESTINAL: No nausea, vomiting, diarrhea or constipation. GENITOURINARY: No dysuria, frequency, or change in urination. MUSCULOSKELETAL: No joint or muscle swelling or pain. No neck or back pain. SKIN: No rash NEUROLOGIC: +dizziness. No headache, vertigo, loss of consciousness, or change in strength/sensation. ENDOCRINE: No increased thirst. No abnormal weight change. HEMATOLOGIC/LYMPHATIC: No anemia, easy bleeding, or history of blood clots. ALLERGIC/IMMUNOLOGIC: No hives or skin allergy. *Physical Exam - Vital Signs Last Vital Signs Temp Pulse Resp BP Pulse Ox 98 F 92 H 17 152/62 98 06/17/19 10:49 06/17/19 11:05 06/17/19 11:05 06/17/19 11:05 06/17/19 11:05 - Physical Exam 06/17/19 13:20 No acute distress lungs are clear bilaterally heart is regular with any murmurs rubs or gallops abdomen is soft and nontender extremities are warm and well- perfused no edema no calf tenderness neurologically is awake alert and oriented x3 Heart Score/ECG Review #1 ECG reviewed & interpreted by me at: 14:59 General ECG Interpretation: Sinus Rhythm, Normal Rate (89), Normal Intervals, No acute ischemic changes Compared to previous ECG there are: Other ED Treatment Course - LABORATORY CBC & Chemistry Diagram: 06/17/19 12:56 06/17/19 12:56 - ADDITIONAL ORDERS Additional order review: Laboratory Results 06/17/19 11:36 POC Glucometer 131 06/17/19 11:36 POC Glucometer 131 Medical Decision Making - Medical Decision Making 06/17/19 13:20 88-year-old male h/o htn hld copd, renal insufficiency today with a hypoglycemic episode. Patient is not currently diabetic and does not take any diabetes meds he felt diaphoretic and lightheaded at that time checked his sugar after the suggestion of his who is a diabetic it was found to be 2 since then he has had 3 recurrent episodes where he felt lightheaded and clammy and diaphoretic all resolved with eating or drinking something. Patient denies taking any other medications no recent fevers or chills no nausea no vomiting no abdominal pain no history of similar episodes in the past 06/17/19 13:56 06/17/19 13:57 pt labs noted for low sugar glucose 56. will start D5% 1/2 ns at 75 ml/ hr. 06/17/19 14:[address] craig, will admit to dr Zaid Salter. Discharge - Discharge Information Problems reviewed: Yes Clinical Impression/Diagnosis: Hypoglycemia - Admission Yes - Follow up/Referral Referrals: Hugo Craig MD [Primary Care Provider] - - Patient Discharge Instructions - Post Discharge Activity
[2019-06-17 13:37] LABS: ALBUMIN 2.9 g/dl (3.4-5.0); ALK PHOS 59 U/L (45-117); ANION GAP 8 MMOL/L (8-16); BILIRUBIN,TOTAL 0.1 mg/dL (0.2-1); CALCIUM 7.8 mg/dL (8.5-10.1); CHLORIDE 112 mmol/L (98-107); CO2 25 mmol/L (21-32); CREATININE 0.9 mg/dL (0.55-1.3); GLUCOSE,RANDOM 56 mg/dL (74-106); POTASSIUM 3.2 mmol/L (3.5-5.1); SGOT/AST 13 U/L (15-37); SGPT/ALT 21 U/L (13-61); SODIUM 144 mmol/L (136-145); TOT PROT 5.6 g/dl (6.4-8.2)
[2019-06-17] MEDS ORDERED: DEXTROSE 5%-0.45% SALINE 1,000 ML IV SCH (14:00)
--- NOTE | 2019-06-17 16:33 | EKG ---
Test Reason : Blood Pressure : / mmHG Vent. Rate : 089 BPM Atrial Rate : 089 BPM P-R Int : 098 ms QRS Dur : 084 ms QT Int : 356 ms P-R-T Axes : 025 036 060 degrees QTc Int : 433 ms SINUS RHYTHM WITH SHORT [place] SEPTAL INFARCT , AGE UNDETERMINED ABNORMAL ECG Confirmed by MD LETICIA, SHO ([id number]) on 06/17/2019 4:33:13 PM Referred By: Confirmed By:SHO KELLY MD
--- NOTE | 2019-06-17 16:46 | HP ---
Admitting History and Physical - Primary Care Physician PCP: Hugo Crespo - Admission Chief Complaint: low blood sugar History of Present Illness: 88 year old male with PMH Prostate CA, COPD, HTN, renal insufficiency, HLD presents to the ED with low blood sugar. he states at home he was feeling clammy , he checked his sugar and it was "2". then he ate and felt better, but he wanted to come in to see "what was going on". His PCP is Dr. Crespo, whom he has an appointment with tomorrow at noon. he lives alone, his is attending rehab at [facility]. he denies chest pains, pressure, n/v/d. he denies vision changes, headaches, excessive thirst, excessive urination. he doesnt agree with being admitted. he feels fine. History Source: Patient Limitations to Obtaining History: No Limitations - Past Medical History Cardiovascular: Yes: CAD (stents X 2 , about 8 ya), HTN, Hyperlipdemia Pulmonary: Yes: COPD Gastrointestinal: Yes: GERD Heme/Onc: Yes: Cancer (prostate) - Past Surgical History Past Surgical History: Yes: Cholecystectomy - Smoking History Smoking history: Never smoked Have you smoked in the past 12 months: No Aproximately how many cigarettes per day: 0 If you are a former smoker, when did you quit?: 2009 - Alcohol/Substance Use Hx Alcohol Use: No History of Substance Use: reports: None - Social History Usual Living Arrangement: Yes: Alone, With Spouse 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 - Allergies Allergies/Adverse Reactions: Allergies Allergy/AdvReac Type Severity Reaction Status Date / Time No Known Allergies Allergy Verified 06/17/19 10:51 - Home Medications Home Medications: Ambulatory Orders Amlodipine Bes/Olmesartan Med [Ericka 5-20 mg Tablet] 1 each PO DAILY 03/24/15 Aspirin [Aspirin EC] 81 mg PO DAILY 03/24/15 Montelukast Na [Singulair -] 10 mg PO HS 03/24/15 Lubiprostone [Amitiza] 24 mcg PO DAILY 08/29/15 Quetiapine Fumarate [Seroquel -] 50 mg PO HS 08/29/15 Acetaminophen with Codeine [Tylenol with Codeine #3 Tablet] 1 each PO 06/17/19 Atorvastatin Calcium [Lipitor] 20 mg PO HS 06/17/19 Clopidogrel Bisulfate [Clopidogrel] 75 mg PO DAILY 06/17/19 Isosorbide Mononitrate [Isosorbide Mononitrate ER] 30 mg PO DAILY 06/17/19 Tamsulosin HCl [Flomax] 0.4 mg PO DAILY 06/17/19 Review of Systems - Review of Systems Constitutional: reports: Diaphoresis, Lethargy Eyes: reports: No Symptoms HENT: reports: No Symptoms Neck: reports: No Symptoms Cardiovascular: reports: No Symptoms Respiratory: reports: No Symptoms Gastrointestinal: reports: No Symptoms Genitourinary: reports: No Symptoms Musculoskeletal: reports: No Symptoms Integumentary: reports: No Symptoms Neurological: reports: No Symptoms Endocrine: reports: No Symptoms Psychiatric: reports: No Symptoms Physical Examination Vital Signs: Vital Signs Temperature 98 F 06/17/19 10:49 Pulse Rate 92 H 06/17/19 11:05 Respiratory Rate 17 06/17/19 11:05 Blood Pressure 152/62 06/17/19 11:05 O2 Sat by Pulse Oximetry (%) 98 06/17/19 11:05 Constitutional: Yes: Well Nourished, No Distress, Anxious HENT: Yes: Atraumatic, Normocephalic Neck: Yes: Supple Cardiovascular: Yes: Regular Rate and Rhythm Respiratory: Yes: Regular, CTA Bilaterally Gastrointestinal: Yes: Normal Bowel Sounds, Soft Musculoskeletal: Yes: WNL Extremities: Yes: WNL Integumentary: Yes: WNL Neurological: Yes: Alert Labs: CBC, BMP 06/17/19 12:56 06/17/19 12:56 Problem List - Problems (1) Hypoglycemia Assessment/Plan: endocrine consult IVF w d5 check thyroid, electrolytes, a1c nutrition eval patient hinted at leaving AMA Code(s): E16.2 - HYPOGLYCEMIA, UNSPECIFIED (2) HTN (hypertension) Assessment/Plan: cont home meds Code(s): I10 - ESSENTIAL (PRIMARY) HYPERTENSION (3) HLD (hyperlipidemia) Assessment/Plan: cont home meds Code(s): E78.5 - HYPERLIPIDEMIA, UNSPECIFIED (4) Renal insufficiency Assessment/Plan: monitor bun/creat baseline around 1 Code(s): N28.9 - DISORDER OF KIDNEY AND URETER, UNSPECIFIED (5) Anemia Assessment/Plan: check iron study, b12 check stool occult Code(s): D64.9 - ANEMIA, UNSPECIFIED (6) Hypocalcemia Assessment/Plan: corrected ca ~ 8.7 Code(s): E83.51 - HYPOCALCEMIA (7) COPD (chronic obstructive pulmonary disease) Code(s): J44.9 - CHRONIC OBSTRUCTIVE PULMONARY DISEASE, UNSPECIFIED
[2019-06-17] MEDS ORDERED: ATORVASTATIN CA 20 MG TABLET (FP) PO SCH (22:00)
[2019-06-17] MEDS ORDERED: HEPARIN NA (PORCINE) 5,000 UNITS/ML 1ML VIAL SQ SCH (22:00)
[2019-06-17] MEDS ORDERED: QUEtiapine FUMARATE 50 MG TABLET PO SCH (22:00)
[2019-06-17] MEDS ORDERED: MONTELUKAST NA 10 MG TABLET PO SCH (22:00)
[2019-06-18 04:34] LABS: IRON SERUM 18 ug/dL (50-175); TOTAL IRON BINDING CAPACITY 263 ug/dL (250-450)
[2019-06-18] MEDS ORDERED: PATIENT'S OWN MEDICATION (NON-FORMULARY) (Lubiprostone [Amitiza] 24 MCG) PO SCH (10:00)
[2019-06-18] MEDS ORDERED: ISOSORBIDE MONONITRATE 30 MG TAB.SR.24H (FP) PO SCH (10:00)
[2019-06-18] MEDS ORDERED: TAMSULOSIN HCL 0.4 MG CAP PO SCH (10:00)
[2019-06-18] MEDS ORDERED: amLODIPine BESYLATE 5 MG TABLET (FP) PO SCH (10:00)
[2019-06-18] MEDS ORDERED: CLOPIDOGREL BISULFATE 75 MG TABLET (FP) PO SCH (10:00)
[2019-06-18] MEDS ORDERED: PATIENT'S OWN MEDICATION (NON-FORMULARY) (Amlodipine Bes/Olmesartan Med [Azor 5-20 Mg Tabl PO SCH (10:00)
[2019-06-18] MEDS ORDERED: ASPIRIN COATED 81 MG TABLET.EC PO SCH (10:00)
[2019-06-18] MEDS ORDERED: VALSARTAN 160 MG TABLET (UD) PO SCH (10:00)
== END 2019-06-17 22:13 | disposition left against medical advice (07) | DRG 641 ==
LOC: JER 10:45 → JERBED 14:02
PROVIDERS: ADMIT Family Medicine; ATTEND Family Medicine
DX: E16.2 Hypoglycemia, unspecified (principal); I10 Essential (primary) hypertension; E78.5 Hyperlipidemia, unspecified; N28.9 Disorder of kidney and ureter, unspecified; D64.9 Anemia, unspecified; E83.51 Hypocalcemia; J44.9 Chronic obstructive pulmonary disease, unspecified; I25.10 Atherosclerotic heart disease of native coronary artery without angina pectoris; Z95.5 Presence of coronary angioplasty implant and graft; K21.9 Gastro-esophageal reflux disease without esophagitis
CPT/HCPCS: 36415; 80053; 82550; 82607; 82962; 83540; 83550; 84484; 85025; 93005; 93010; 99285-25

== ENCOUNTER 2019-06-23 06:33 | Inpatient (IN) | payer OTHER ==
[~2019-06-23 06:33] MED LIST: methylPREDNISolone NA SUCC 40 MG/1 ML VIAL IVPUSH SCH
--- NOTE | 2019-06-23 07:17 | PDOC ---
History of Present Illness - General Chief Complaint: Chest Pain Stated Complaint: CHEST PAIN Time Seen by Provider: 06/23/19 07:03 - History of Present Illness Initial Comments: Graciela Larose is a 88 y/o male with reported PMH significant for HTN, DM, HLD , s/p cardiac stents ("many years ago" at [facility]) presenting today with chest pain that started at 4am. Reports that the pain is intermittent. Describes the pain as pressure like. Took all of his medicines today. Denies pain radiation. Reports mild fever this morning. Denies recent illness. No abd pain. No back pain. Mild shortness of breath. Pain is intermittent. Reports mild productive cough. Past History - Past Medical History Allergies/Adverse Reactions: Allergies Allergy/AdvReac Type Severity Reaction Status Date / Time No Known Allergies Allergy Verified 06/23/19 06:55 Home Medications: Ambulatory Orders Amlodipine Bes/Olmesartan Med [Ericka 5-20 mg Tablet] 1 each PO DAILY 03/24/15 Montelukast Na [Singulair -] 10 mg PO HS 03/24/15 Lubiprostone [Amitiza] 24 mcg PO DAILY 08/29/15 Quetiapine Fumarate [Seroquel -] 50 mg PO HS 08/29/15 Acetaminophen with Codeine [Tylenol with Codeine #3 Tablet] 1 each PO TID PRN Atorvastatin Calcium [Lipitor] 20 mg PO HS 06/17/19 Clopidogrel Bisulfate [Clopidogrel] 75 mg PO DAILY 06/17/19 Isosorbide Mononitrate [Isosorbide Mononitrate ER] 30 mg PO DAILY 06/17/19 Tamsulosin HCl [Flomax] 0.4 mg PO DAILY 06/17/19 Mecobal/Levomefolat Ca/B6 Phos [Foltanx Tablet] 1 each PO DAILY 06/23/19 Metoprolol Tartrate 50 mg PO DAILY 06/23/19 Multivitamin [Multiple Vitamins] 1 each PO DAILY 06/23/19 Nitroglycerin Sublingual [Nitrostat -] 0.4 mg SL DAILY PRN 06/23/19 Pantoprazole Sodium 40 mg PO DAILY 06/23/19 Anemia: No Asthma: No Cancer: Yes (prostate ca) Cardiac Disorders: Yes CVA: No COPD: Yes CHF: No Dementia: No Diabetes: No GI Disorders: No Disorders: No HTN: Yes Hypercholesterolemia: Yes Liver Disease: No Seizures: No Thyroid Disease: No - Surgical History Abdominal Surgery: No Appendectomy: No Cardiac Surgery: Yes (STENT) Cholecystectomy: Yes Lung Surgery: No Neurologic Surgery: No Orthopedic Surgery: No - Immunization History Immunization Up to Date: Yes - Psycho Social/Smoking Cessation Hx Smoking Status: Yes Smoking History: Never smoked Have you smoked in the past 12 months: No Number of Cigarettes Smoked Daily: 0 If you are a former smoker, when did you quit?: 2009 Hx Alcohol Use: Yes Drug/Substance Use Hx: No Substance Use Type: None Hx Substance Use Treatment: No Cardiac Specific PMH - Complaint Specific PMHX Pacemaker: No Review of Systems - Review of Systems Comments:: GENERAL/CONSTITUTIONAL: Reports fever. No weakness._ HEAD, EYES, EARS, NOSE AND THROAT: No change in vision. No change in hearing. No sore throat._ CARDIOVASCULAR: Reports chest pain and mild shortness of breath. RESPIRATORY: Reports mild productive cough. GASTROINTESTINAL: No nausea, vomiting, diarrhea or constipation._ GENITOURINARY: No dysuria, frequency, or change in urination._ MUSCULOSKELETAL: No joint or muscle swelling or pain. No neck or back pain._ SKIN: No rash_ NEUROLOGIC: No headache, vertigo, loss of consciousness, or change in strength/ sensation._ ENDOCRINE: No increased thirst. No abnormal weight change_ HEMATOLOGIC/LYMPHATIC: No anemia, easy bleeding, or history of blood clots._ ALLERGIC/IMMUNOLOGIC: No hives or skin allergy._ *Physical Exam - Vital Signs Last Vital Signs Temp Pulse Resp BP Pulse Ox 98.5 F 77 20 140/61 93 L 06/23/19 18:06 06/23/19 18:06 06/23/19 18:06 06/23/19 18:06 06/23/19 12:45 - Physical Exam GENERAL: Awake, alert, and oriented to person/place/time, in no acute distress_ HEAD: No signs of trauma, normocephalic, atraumatic _ EYES: PERRLA, EOMI, sclera anicteric, conjunctiva clear_ ENT: Hearing grossly normal, nares patent, oropharynx clear without exudates. No uvular deviation. Moist mucosa_ NECK: Normal ROM, supple, no lymphadenopathy, JVD, or masses_ LUNGS: No distress, speaks in full sentences, clear to auscultation bilaterally _ CHEST: pectus carinatum. HEART: Regular rate and rhythm, normal S1 and S2, no murmurs appreciated, peripheral pulses normal and equal bilaterally._ ABDOMEN: Soft, nontender, normoactive bowel sounds. No guarding, no rebound. No masses_ EXTREMITIES: Normal inspection, Normal range of motion, no edema. No clubbing or cyanosis_ NEUROLOGICAL: Cranial nerves II through XII grossly intact. Normal speech, normal gait, no focal sensorimotor deficits _ SKIN: Warm, Dry, normal turgor, no rashes or lesions noted_ ED Treatment Course - LABORATORY CBC & Chemistry Diagram: 06/23/19 07:50 06/23/19 10:24 - ADDITIONAL ORDERS Additional order review: Laboratory Results 06/23/19 07:50 Sodium 142 Potassium 3.6 Chloride 105 Carbon Dioxide 30 Anion Gap 7 L BUN 22.0 H Creatinine 1.3 Est GFR (CKD-EPI)AfAm 57.26 Est GFR (CKD-EPI)NonAf 49.41 Random Glucose 116 H Calcium 8.5 Total Bilirubin 0.5 AST 14 L ALT 25 Alkaline Phosphatase 75 Creatine Kinase 116 Troponin I 0.02 Total Protein 6.4 Albumin 3.4 06/23/19 07:50 RBC 3.64 L MCV 85.6 MCHC 32.2 RDW 14.4 MPV 7.2 L Neutrophils % 91.3 H Lymphocytes % 3.1 L D Monocytes % 5.3 Eosinophils % 0.1 Basophils % 0.2 - RADIOLOGY Radiology Studies Ordered: Category Date Time Status CHEST X-RAY PORTABLE* [RAD] Stat Radiology 06/23/19 07:23 Completed - Medications Given in the ED: ED Medications Discontinued Medications Generic Name Dose Route Start Last Admin Trade Name Freq PRN Reason Stop Dose Admin Azithromycin 500 mg/ Dextrose 250 mls @ 250 mls/hr 06/23/19 09:59 06/23/19 11 :30 IVPB 06/23/19 10:58 250 mls/hr ONCE ONE Administration Ceftriaxone Sodium 1 gm/ 100 mls @ 200 mls/hr 06/23/19 09:59 06/23/19 10:45 Dextrose IVPB 06/23/19 10:28 200 mls/hr ONCE ONE Administration Sodium Chloride 2,041 mls @ 1,020.5 mls/hr 06/23/19 10:26 06/23/19 10:54 Normal Saline - 30 ml/kg infuse over 2 hr (2041 ml) 06/23/19 12:25 1,020.5 mls/hr IV Administration ONCE ONE Methylprednisolone Sodium Succinate 125 mg 06/23/19 09:59 06/23/19 10:20 Solu-Medrol - IVPUSH 06/23/19 10:00 125 mg ONCE ONE Administration Methylprednisolone Sodium Succinate 40 mg 06/23/19 15:00 06/23/19 14:37 Solu-Medrol - IVPUSH 40 mg Q6H-IV SARINA Administration Methylprednisolone Sodium Succinate 40 mg 06/23/19 17:00 06/23/19 17:58 Solu-Medrol - IVPUSH Not Given Q12H [facility] Medical Decision Making - Medical Decision Making 06/23/19 07:22 88M hx of cardiac stents presenting today with chest pain that started at 4am. DDx includes r/o ACS vs PNA. Plan to admit. -cbc, cmp -ekg, trop, cxr 06/23/19 07:45 EKG shows sinus tachycardia with PACs, 104 bpm, no ST elevation/depression, QTc 428, no axis deviation. 06/23/19 09:52 CXR shows patch right mid/lower infiltrate. Labs reviewed. Laboratory Last Values WBC 13.4 K/mm3 (4.0-10.0) H 06/23/19 07:50 RBC 3.64 M/mm3 (4.00-5.60) L 06/23/19 07:50 Hgb 10.0 GM/dL (11.7-16.9) L 06/23/19 07:50 Hct 31.2 % (35.4-49) L 06/23/19 07:50 MCV 85.6 fl (80-96) 06/23/19 07:50 MCH 27.6 pg (25.7-33.7) 06/23/19 07:50 MCHC 32.2 g/dl (32.0-35.9) 06/23/19 07:50 RDW 14.4 % (11.9-15.9) 06/23/19 07:50 Plt Count 300 K/MM3 (134-434) 06/23/19 07:50 MPV 7.2 fl (7.5-11.1) L 06/23/19 07:50 Absolute Neuts (auto) 12.2 K/mm3 (1.5-8.0) H 06/23/19 07:50 Neutrophils % 91.3 % (42.8-82.8) H 06/23/19 07:50 Lymphocytes % 3.1 % (8-40) L D 06/23/19 07:50 Monocytes % 5.3 % (3.8-10.2) 06/23/19 07:50 Eosinophils % 0.1 % (0-4.5) 06/23/19 07:50 Basophils % 0.2 % (0-2.0) 06/23/19 07:50 Nucleated RBC % 0 % (0-0) 06/23/19 07:50 Sodium 142 mmol/L (136-145) 06/23/19 07:50 Potassium 3.6 mmol/L (3.5-5.1) 06/23/19 07:50 Chloride 105 mmol/L (98-107) 06/23/19 07:50 Carbon Dioxide 30 mmol/L (21-32) 06/23/19 07:50 Anion Gap 7 MMOL/L (8-16) L 06/23/19 07:50 BUN 22.0 mg/dL (7-18) H 06/23/19 07:50 Creatinine 1.3 mg/dL (0.55-1.3) 06/23/19 07:50 Est GFR (CKD-EPI)AfAm 57.26 06/23/19 07:50 Est GFR (CKD-EPI)NonAf 49.41 06/23/19 07:50 Random Glucose 116 mg/dL (74-106) H 06/23/19 07:50 Calcium 8.5 mg/dL (8.5-10.1) 06/23/19 07:50 Total Bilirubin 0.5 mg/dL (0.2-1) 06/23/19 07:50 AST 14 U/L (15-37) L 06/23/19 07:50 ALT 25 U/L (13-61) 06/23/19 07:50 Alkaline Phosphatase 75 U/L (45-117) 06/23/19 07:50 Creatine Kinase 116 U/L (26-308) 06/23/19 07:50 Troponin I 0.02 ng/ml (0.00-0.05) 06/23/19 07:50 Total Protein 6.4 g/dl (6.4-8.2) 06/23/19 07:50 Albumin 3.4 g/dl (3.4-5.0) 06/23/19 07:50 06/23/19 09:58 Plan to start steroids and abx for COPD exacerbation and PNA. 06/23/19 10:08 D/w Dr. Jackson who accepts the patient for admission. Discharge - Discharge Information Problems reviewed: Yes Clinical Impression/Diagnosis: COPD (chronic obstructive pulmonary disease), Pneumonia Condition: Fair - Admission Yes - Follow up/Referral - Patient Discharge Instructions - Post Discharge Activity
[2019-06-23 08:27] LABS: BASO % 0.2 % (0-2.0); EOS % 0.1 % (0-4.5); HEMATOCRIT 31.2 % (35.4-49); LYMPH % 3.1 % (8-40); MCH 27.6 pg (25.7-33.7); MCHC 32.2 g/dl (32.0-35.9); MEAN CELL VOLUME 85.6 fl (80-96); MEAN PLT VOLUME 7.2 fl (7.5-11.1); MONO % 5.3 % (3.8-10.2); NEUT % 91.3 % (42.8-82.8); PLATELET COUNT 300 K/MM3 (134-434); RBC 3.64 M/mm3 (4.00-5.60); RDW 14.4 % (11.9-15.9); WHITE BLOOD COUNT 13.4 K/mm3 (4.0-10.0)
[2019-06-23 09:03] LABS: ALBUMIN 3.4 g/dl (3.4-5.0); BILIRUBIN,TOTAL 0.5 mg/dL (0.2-1); CALCIUM 8.5 mg/dL (8.5-10.1); CREATININE 1.3 mg/dL (0.55-1.3); POTASSIUM 3.6 mmol/L (3.5-5.1); TOT PROT 6.4 g/dl (6.4-8.2)
[2019-06-23] MEDS ORDERED: CEFTRIAXONE 1 GM in DEXTROSE 5%-WATER - 100 ML IVPB ONE (09:59)
[2019-06-23] MEDS ORDERED: methylPREDNISolone NA SUCC 125 MG/2 ML VIAL IVPUSH ONE (09:59)
[2019-06-23] MEDS ORDERED: AZITHROMYCIN IVPB 500 MG in DEXTROSE 5%-WATER - 250 ML IVPB ONE (09:59)
[2019-06-23 10:10] LABS: ANISOCYTOSIS 1+; MACROCYTOSIS 0; PLATELET ESTIMATE NORMAL
[2019-06-23] MEDS ORDERED: methylPREDNISolone NA SUCC 125 MG/2 ML VIAL ONE (10:13)
[2019-06-23] MEDS ORDERED: CEFTRIAXONE 1 GM/50 ML BAG ONE (10:13)
[2019-06-23] MEDS ORDERED: AZITHROMYCIN IVPB 500 MG/250 ML BAG IVPB ONE (10:13)
[2019-06-23] MEDS ORDERED: SODIUM CHLORIDE 2,041 ML IV ONE (10:26)
--- NOTE | 2019-06-23 10:33 | EKG ---
Test Reason : Blood Pressure : / mmHG Vent. Rate : 104 BPM Atrial Rate : 104 BPM P-R Int : 128 ms QRS Dur : 084 ms QT Int : 326 ms P-R-T Axes : 066 037 072 degrees QTc Int : 428 ms SINUS TACHYCARDIA WITH PREMATURE ATRIAL COMPLEXES WITH ABERRANT CONDUCTION OTHERWISE NORMAL ECG WHEN COMPARED WITH ECG OF 17-JUN-2019 12:09, ABERRANT CONDUCTION IS NOW PRESENT CRITERIA FOR SEPTAL INFARCT ARE NO LONGER PRESENT Confirmed by Ron Ornelas MD ([id number]) on 06/23/2019 10:32:57 AM Referred By: Confirmed By:Ron Ornelas MD
--- NOTE | 2019-06-23 10:39 | PDOC ---
Attending Attestation - Resident Resident Name: Ron Mercado - ED Attending Attestation I have performed the following: I have examined & evaluated the patient, The case was reviewed & discussed with the resident, I agree w/resident's findings & plan - HPI HPI: 06/23/19 10:35 88-year-old male brought in for fever/chills/cough/chest pain at home this morning.Previously well, Question slightly decreased p.o. intake last night. - Physicial Exam PE: 06/23/19 10:35 Afebrile at triage, slight tachycardia, O2 sat within normal limits Alert elderly patients feeling generally weak, but no acute distress Heart is regular slight tachycardia Lungs with crackles at the right base and right midlung field, otherwise clear with good air entry and no wheezing Abdomen benign Neurologically nonfocal - Medical Decision Making 06/23/19 10:36 88-year-old male presents with fever/chills/cough/chest pain, seems most consistent with infectious process, rule out ACS. Upon arrival, isolated tachycardia without fever or hypoxia, but physical exam findings could be consistent with pneumonia. Labs notable for leukocytosis of 13, chest x-ray consistent with by lobar pneumonia. Sepsis identified with leukocytosis, protocol initiated Blood cultures, antibiotics for community-acquired pneumonia Admission
[2019-06-23 11:23] LABS: ALBUMIN 3.1 g/dl (3.4-5.0); ALK PHOS 71 U/L (45-117); ANION GAP 5 MMOL/L (8-16); BILIRUBIN,TOTAL 0.6 mg/dL (0.2-1); BLOOD UREA NITROGEN 19.3 mg/dL (7-18); CALCIUM 8.4 mg/dL (8.5-10.1); CHLORIDE 108 mmol/L (98-107); CO2 29 mmol/L (21-32); CREATININE 1.2 mg/dL (0.55-1.3); GLUCOSE,RANDOM 128 mg/dL (74-106); POTASSIUM 3.9 mmol/L (3.5-5.1); SGOT/AST 14 U/L (15-37); SGPT/ALT 23 U/L (13-61); SODIUM 142 mmol/L (136-145); TOT PROT 6.1 g/dl (6.4-8.2)
[2019-06-23 12:11] LABS: INR 1.09 (0.83-1.09); PROTHROMBIN TIME (PATIENT) 12.9 SEC (9.7-13.0)
[2019-06-23 12:14] LABS: ACTIVATED PTT 33.4 SECONDS (25.2-36.5)
[2019-06-23] MEDS: ALBUTEROL SO4 2.5/IPRATROPIUM 0.5 INH SOL 3 ML VIAL.NEB. NEB SCH ×3 (13:00→20:20)
--- NOTE | 2019-06-23 13:09 | CON.CARD ---
Consult Consult Specialty:: Cardiology Referred by:: Dr. Jackson Reason for Consultation:: chest pain - History of Present Illness Chief Complaint: chest pain History of Present Illness: 88 year old man with pmh HTN, DMII, HLD, CAD prior stents last being approx 4-5 years ago admitted with chest pain and chills, found to have likely PNA. pt seen and examined today in [facility]. states he is feeling better. states no further chest pain since admission. states symptoms started at 4am associated with chills and he took a NTG with relief. no sob, palpitations, pnd, orthopnea, or LE edema. states he follows with a hearing aid assistant in Dr. Arrieta office. denies recent stress test or echo. - History Source History Provided By: Patient, Medical Record Limitations to Obtaining History: No Limitations - Past Medical History Cardio/Vascular: Yes: CAD (stents X 2 , about 8 ya), HTN, Hyperlipdemia Pulmonary: Yes: COPD Gastrointestinal: Yes: GERD - Past Surgical History Past Surgical History: Yes: Cholecystectomy - Alcohol/Substance Use Hx Alcohol Use: Yes History of Substance Use: reports: None - Smoking History Smoking history: Never smoked Have you smoked in the past 12 months: No Aproximately how many cigarettes per day: 0 If you are a former smoker, when did you quit?: 2009 - Social History Usual Living Arrangement: With Spouse 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 - Allergies Allergies/Adverse Reactions: Allergies Allergy/AdvReac Type Severity Reaction Status Date / Time No Known Allergies Allergy Verified 06/23/19 06:55 - Home Medications Home Medications: Ambulatory Orders Amlodipine Bes/Olmesartan Med [Ericka 5-20 mg Tablet] 1 each PO DAILY 03/24/15 Montelukast Na [Singulair -] 10 mg PO HS 03/24/15 Lubiprostone [Amitiza] 24 mcg PO DAILY 08/29/15 Quetiapine Fumarate [Seroquel -] 50 mg PO HS 08/29/15 Acetaminophen with Codeine [Tylenol with Codeine #3 Tablet] 1 each PO TID PRN Atorvastatin Calcium [Lipitor] 20 mg PO HS 06/17/19 Clopidogrel Bisulfate [Clopidogrel] 75 mg PO DAILY 06/17/19 Isosorbide Mononitrate [Isosorbide Mononitrate ER] 30 mg PO DAILY 06/17/19 Tamsulosin HCl [Flomax] 0.4 mg PO DAILY 06/17/19 Glimepiride 4 mg PO DAILY 06/23/19 Mecobal/Levomefolat Ca/B6 Phos [Foltanx Tablet] 1 each PO DAILY 06/23/19 Metoprolol Tartrate 50 mg PO DAILY 06/23/19 Multivitamin [Multiple Vitamins] 1 each PO DAILY 06/23/19 Nitroglycerin Sublingual [Nitrostat -] 0.4 mg SL DAILY PRN 06/23/19 Pantoprazole Sodium 40 mg PO DAILY 06/23/19 Family Medical History Family History: Denies Review of Systems - Review of Systems Constitutional: reports: Chills. denies: No Symptoms, Diaphoresis, Fever, Lethargy, Loss of Appetite, Malaise, Night Sweats, Unintentional Wgt. Loss, Weakness, Other Eyes: denies: No Symptoms, Blind Spots, Blurred Vision, Double Vision, Eye Pain , Floaters, Photophobia, Recent Change in Vision, Other HENT: denies: No Symptoms, Difficult Swallowing, Ear Discharge, Ear Pain, Epistaxis, Gingival Bleeding, Hearing Loss, Mouth Swelling, Nasal Congestion, Ocular Prosthesis, Throat Pain, Toothache, Ringing in Ears, Other Neck: denies: No Symptoms, Decreased ROM, Lumps, Pain on Movement, Stiffness, Swollen Glands, Tenderness, Other Cardiovascular: reports: Chest Pain. denies: No Symptoms, Edema, Palpitations, Shortness of Breath, Other Respiratory: denies: No Symptoms, Cough, Exercise Intolerance, Hemoptysis, Orthopnea, PND, Snoring, SOB, SOB on Exertion, Wheezing, Other Gastrointestinal: denies: No Symptoms, Abdominal Pain, Bloating, Constipation, Diarrhea, Dysphagia, Indigestion, Melena, Nausea, Rectal Bleeding, Vomiting, Vomiting Blood, Other Genitourinary: denies: No Symptoms, Burning, Discharge, Dysuria, Flank Pain, Frequency, Hematuria, Incontinence, Lesions, Menses, Pain, Testicular Mass, Testicular Pain, Testicular Swelling, Urgency, Vaginal Bleeding, Other Breasts: denies: No Symptoms Reported, See HPI, Breast Implants, Discharge from Nipple, Lumps, Pain, Skin Changes, Other Musculoskeletal: denies: No Symptoms, Back Pain, Crepitus, Decreased ROM, Extremity Pain, Joint Pain, Joint Swelling, Muscle Pain, Muscle Cramps, Muscle Weakness, Other Integumentary: denies: No Symptoms, Blister, Bruising, Change in Color, Eczema, Erythema, Incision, Lesions, Lump, Pallor, Pruritis, Rash, Wound, Other Neurological: denies: No Symptoms, Change in LOC, Change in Speech, Confusion, Dizziness, Headache, Incoordination, Numbness, Parasthesia, Pre-Existing Deficit , Seizure, Syncope, Tremors, Unsteady Gait, Weakness, Other Endocrine: denies: No Symptoms, Excessive Sweating, Flushing, Increased Hunger, Increased Thirst, Intolerance to Cold, Intolerance to Heat, Unexplained Weight Gain, Unexplained Weight Loss, Other Hematology/Lymphatic: denies: No Symptoms, Easily Bruised, Excessive Bleeding, Swollen Glands, Other Psychiatric: denies: No Symptoms, Altered Sleep Pattern, Anxiety, Depression, Hallucinations, Panic, Paranoia, Suicidal, Other - Risk Factors Known Risk Factors: Yes: Diabetes Mellitus, Hypercholesterolemia Vital Signs: Vital Signs Temperature 98.1 F 06/23/19 12:45 Pulse Rate 86 06/23/19 12:45 Respiratory Rate 20 06/23/19 12:45 Blood Pressure 158/66 06/23/19 12:45 O2 Sat by Pulse Oximetry (%) 97 06/23/19 11:50 Constitutional: Yes: No Distress, Calm Eyes: Yes: Conjunctiva Clear, EOM Intact HENT: Yes: Atraumatic, Normocephalic Neck: Yes: Supple, Trachea Midline Respiratory: Yes: Regular, CTA Bilaterally. No: Rales, Rhonchi, Wheezes Gastrointestinal: Yes: Normal Bowel Sounds, Soft. No: Distention, Tenderness Cardiovascular: Yes: Regular Rate and Rhythm. No: Bradycardia, Tachycardia, Pulse Irregular, Gallop, Rub, Varicosities JVD: No Carotid Bruit: No PMI: Non-Displaced Heart Sounds: Yes: S1, S2. No: Split S2, S3, S4, Clicks, Gallop, Rub, Bruit Murmur: No: Systolic Murmur, Diastolic Murmur Extremities: Yes: WNL Edema: No Peripheral Pulses WNL: Yes Peripheral Pulses: 2+ Left Doralis Pedis, 2+ Right Dorsalis Pedis Neurological: Yes: Alert, Oriented Psychiatric: Yes: Alert, Oriented - Other Data Labs, Other Data: CBC, BMP 06/23/19 07:50 06/23/19 10:24 INR, PTT INR 1.09 (0.83-1.09) 06/23/19 11:45 Troponin, BNP 06/23/19 06/23/19 07:50 10:24 Troponin I 0.02 < 0.02 Troponin, BNP 06/23/19 06/23/19 07:50 10:24 Troponin I 0.02 < 0.02 ekg sinus tach with apcs, no ischemia Imaging - Results Chest X-ray: Report Reviewed, Image Reviewed EKG: Report Reviewed, Image Reviewed Other: Report Reviewed, Image Reviewed Assessment/Plan 88 year old man with pmh HTN, DMII, HLD, CAD prior stents last being approx 4-5 years ago admitted with chest pain and chills, found to have likely PNA. pt seen and examined today in [facility]. states he is feeling better. states no further chest pain since admission. states symptoms started at 4am associated with chills and he took a NTG with relief. no sob, palpitations, pnd, orthopnea, or LE edema. states he follows with a hearing aid assistant in Dr. Arrieta office. denies recent stress test or echo. chest pain-atypical, but history of CAD and prior stents -unlikely ACS -found to have likely pna -no ischemia on ekg -cardiac enzymes wnl. -cont tx of PNA as per medicine -likely can defer additional cardiac work up to outpatient setting, follows with hearing aid assistant in Dr. Arrieta offices
--- NOTE | 2019-06-23 13:51 | HP ---
Admitting History and Physical - Primary Care Physician PCP: Hugo Crespo - Admission Chief Complaint: chest pain History of Present Illness: 88 year old male with PMH HTN, DM, HLD CAD s/p stenting presents to the ED with chest pain. he states the chest pain started this morning around 4 am, he took sublingual nitro and the pain was relieved but he called 911. he denies fevers, chills, n/v/d. he states he lives alone, as his is at [facility] not doing very well, his children live outside the . his chest pain has resolved. of note he was recently seen in the ED 06/17/2019 for hypoglycemia. History Source: Patient Limitations to Obtaining History: No Limitations - Past Medical History Cardiovascular: Yes: CAD (stents X 2 , about 8 ya), HTN, Hyperlipdemia Pulmonary: Yes: COPD Gastrointestinal: Yes: GERD Heme/Onc: Yes: Cancer (prostate) - Past Surgical History Past Surgical History: Yes: Cholecystectomy - Smoking History Smoking history: Never smoked Have you smoked in the past 12 months: No Aproximately how many cigarettes per day: 0 If you are a former smoker, when did you quit?: 2009 - Alcohol/Substance Use Hx Alcohol Use: Yes History of Substance Use: reports: None - Social History Usual Living Arrangement: Yes: With Spouse 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 - Allergies Allergies/Adverse Reactions: Allergies Allergy/AdvReac Type Severity Reaction Status Date / Time No Known Allergies Allergy Verified 06/23/19 06:55 - Home Medications Home Medications: Ambulatory Orders Amlodipine Bes/Olmesartan Med [Ericka 5-20 mg Tablet] 1 each PO DAILY 03/24/15 Montelukast Na [Singulair -] 10 mg PO HS 03/24/15 Lubiprostone [Amitiza] 24 mcg PO DAILY 08/29/15 Quetiapine Fumarate [Seroquel -] 50 mg PO HS 08/29/15 Acetaminophen with Codeine [Tylenol with Codeine #3 Tablet] 1 each PO TID PRN Atorvastatin Calcium [Lipitor] 20 mg PO HS 06/17/19 Clopidogrel Bisulfate [Clopidogrel] 75 mg PO DAILY 06/17/19 Isosorbide Mononitrate [Isosorbide Mononitrate ER] 30 mg PO DAILY 06/17/19 Tamsulosin HCl [Flomax] 0.4 mg PO DAILY 06/17/19 Glimepiride 4 mg PO DAILY 06/23/19 Mecobal/Levomefolat Ca/B6 Phos [Foltanx Tablet] 1 each PO DAILY 06/23/19 Metoprolol Tartrate 50 mg PO DAILY 06/23/19 Multivitamin [Multiple Vitamins] 1 each PO DAILY 06/23/19 Nitroglycerin Sublingual [Nitrostat -] 0.4 mg SL DAILY PRN 06/23/19 Pantoprazole Sodium 40 mg PO DAILY 06/23/19 Family Medical History Family History: Unable to Obtain Review of Systems - Review of Systems Constitutional: reports: Fever Eyes: reports: No Symptoms HENT: reports: No Symptoms Neck: reports: No Symptoms Cardiovascular: reports: Chest Pain Respiratory: reports: Cough Gastrointestinal: reports: No Symptoms Genitourinary: reports: No Symptoms Musculoskeletal: reports: No Symptoms Integumentary: reports: No Symptoms Neurological: reports: No Symptoms Endocrine: reports: No Symptoms Hematology/Lymphatic: reports: No Symptoms Psychiatric: reports: No Symptoms Physical Examination Vital Signs: Vital Signs Temperature 98.1 F 06/23/19 12:45 Pulse Rate 86 06/23/19 12:45 Respiratory Rate 20 06/23/19 12:45 Blood Pressure 158/66 06/23/19 12:45 O2 Sat by Pulse Oximetry (%) 97 06/23/19 11:50 Constitutional: Yes: Well Nourished, No Distress HENT: Yes: Atraumatic, Normocephalic Neck: Yes: Supple Cardiovascular: Yes: Regular Rate and Rhythm Respiratory: Yes: Regular Gastrointestinal: Yes: Normal Bowel Sounds, Soft Musculoskeletal: Yes: WNL Extremities: Yes: WNL Integumentary: Yes: WNL Neurological: Yes: Alert Psychiatric: Yes: Alert Labs: CBC, BMP 06/23/19 07:50 06/23/19 10:24 Imaging - Results Chest X-ray: Report Reviewed, Image Reviewed Problem List - Problems (1) Sepsis Assessment/Plan: ID consult was given CAP coverage, azithro ceftriaxone in ED blood cultures pending Code(s): A41.9 - SEPSIS, UNSPECIFIED ORGANISM (2) Anemia Assessment/Plan: iron profile, b12, folate ordered Code(s): D64.9 - ANEMIA, UNSPECIFIED (3) Chest pain Assessment/Plan: resolved cardiology consult appreciated likely pleuritic in nature enzymes negative Code(s): R07.9 - CHEST PAIN, UNSPECIFIED (4) HLD (hyperlipidemia) Assessment/Plan: continue statin Code(s): E78.5 - HYPERLIPIDEMIA, UNSPECIFIED (5) HTN (hypertension) Assessment/Plan: continue cardiac meds Code(s): I10 - ESSENTIAL (PRIMARY) HYPERTENSION
[2019-06-23] MEDS ORDERED: methylPREDNISolone NA SUCC 40 MG/1 ML VIAL IVPUSH SCH ×2 (15:00→17:00)
--- NOTE | 2019-06-23 15:08 | CON.PULM ---
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 Admitted via the ER due to somewhat diffuse chest pain and chills. No hemoptysis or night sweats. No recent travel history or sick contacts. Patient reports symptoms started today and he took he took a NTG with relief. CXR: RML & RLL infiltrates CT Chest: 2017: 6 mm RML nodule that has been stable since 2016 - History Source History Provided By: Patient Limitations to Obtaining History: Poor Historian - Past Medical History Cardio/Vascular: Yes: CAD (stents X 2 , about 8 ya), HTN, Hyperlipdemia Pulmonary: Yes: Bronchitis, COPD. 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 - Allergies Allergies/Adverse Reactions: Allergies Allergy/AdvReac Type Severity Reaction Status Date / Time No Known Allergies Allergy Verified 06/23/19 06:55 - Home Medications Home Medications: Ambulatory Orders Amlodipine Bes/Olmesartan Med [Ericka 5-20 mg Tablet] 1 each PO DAILY 03/24/15 Montelukast Na [Singulair -] 10 mg PO HS 03/24/15 Lubiprostone [Amitiza] 24 mcg PO DAILY 08/29/15 Quetiapine Fumarate [Seroquel -] 50 mg PO HS 08/29/15 Acetaminophen with Codeine [Tylenol with Codeine #3 Tablet] 1 each PO TID PRN Atorvastatin Calcium [Lipitor] 20 mg PO HS 06/17/19 Clopidogrel Bisulfate [Clopidogrel] 75 mg PO DAILY 06/17/19 Isosorbide Mononitrate [Isosorbide Mononitrate ER] 30 mg PO DAILY 06/17/19 Tamsulosin HCl [Flomax] 0.4 mg PO DAILY 06/17/19 Glimepiride 4 mg PO DAILY 06/23/19 Mecobal/Levomefolat Ca/B6 Phos [Foltanx Tablet] 1 each PO DAILY 06/23/19 Metoprolol Tartrate 50 mg PO DAILY 06/23/19 Multivitamin [Multiple Vitamins] 1 each PO DAILY 06/23/19 Nitroglycerin Sublingual [Nitrostat -] 0.4 mg SL DAILY PRN 06/23/19 Pantoprazole Sodium 40 mg PO DAILY 06/23/19 Review of Systems - Review of Systems Constitutional: reports: Lethargy, Malaise. denies: Chills, Fever, Night Sweats , Weakness Eyes: reports: No Symptoms HENT: reports: No Symptoms Neck: reports: No Symptoms Cardiovascular: reports: Chest Pain, Shortness of Breath. denies: Edema, Palpitations Respiratory: reports: Cough, Snoring, SOB, SOB on Exertion. denies: Hemoptysis , Orthopnea, PND, Wheezing Gastrointestinal: reports: No Symptoms Genitourinary: reports: No Symptoms Breasts: reports: No Symptoms Reported Musculoskeletal: reports: No Symptoms Integumentary: reports: No Symptoms Neurological: reports: No Symptoms Endocrine: reports: No Symptoms Hematology/Lymphatic: reports: No Symptoms Psychiatric: reports: No Symptoms Physical Exam Vital Sings: Vital Signs Temperature 98.1 F 06/23/19 12:45 Pulse Rate 86 06/23/19 12:45 Respiratory Rate 20 06/23/19 12:45 Blood Pressure 158/66 06/23/19 12:45 O2 Sat by Pulse Oximetry (%) 97 06/23/19 11:50 Constitutional: Yes: No Distress, Thin Eyes: Yes: Conjunctiva Clear, EOM Intact HENT: Yes: Atraumatic, Normocephalic Neck: Yes: Supple, Trachea Midline Cardiovascular: Yes: Regular Rate and Rhythm Respiratory: Yes: Cough, Diminished, On Nasal O2, Rhonchi, SOB on Exertion, Wheezes. No: Accessory Muscle Use, Rales, SOB, Stridor, Tachypnea ...Inspection: Yes: WNL ...Clubbing: No Gastrointestinal: Yes: Normal Bowel Sounds, Soft Renal/: Yes: WNL Musculoskeletal: Yes: WNL Extremities: Yes: WNL Edema: No Peripheral Pulses WNL: Yes Integumentary: Yes: WNL Neurological: Yes: WNL, Alert, Oriented ...Motor Strength: WNL Psychiatric: Yes: WNL, Alert, Oriented Labs: CBC, BMP 06/23/19 07:50 06/23/19 10:24 Imaging - Results Chest X-ray: Report Reviewed, Image Reviewed Cat Scan: Report Reviewed, Image Reviewed Problem List - Problems (1) Community acquired pneumonia Code(s): J18.9 - PNEUMONIA, UNSPECIFIED ORGANISM (2) Pulmonary nodule Code(s): R91.1 - SOLITARY PULMONARY NODULE (3) ASHD (arteriosclerotic heart disease) Code(s): I25.10 - ATHSCL HEART DISEASE OF [place] CORONARY ARTERY W/O ANG PCTRS (4) CHF (congestive heart failure) Code(s): I50.9 - HEART FAILURE, UNSPECIFIED (5) COPD (chronic obstructive pulmonary disease) Code(s): J44.9 - CHRONIC OBSTRUCTIVE PULMONARY DISEASE, UNSPECIFIED (6) Chest pain Code(s): R07.9 - CHEST PAIN, UNSPECIFIED (7) HLD (hyperlipidemia) Code(s): E78.5 - HYPERLIPIDEMIA, UNSPECIFIED (8) HTN (hypertension) Code(s): I10 - ESSENTIAL (PRIMARY) HYPERTENSION (9) Nephrolithiasis Code(s): N20.0 - CALCULUS OF KIDNEY (10) Pneumonia Code(s): J18.9 - PNEUMONIA, UNSPECIFIED ORGANISM (11) Prostate CA Code(s): C61 - MALIGNANT NEOPLASM OF PROSTATE (12) SOB (shortness of breath) Code(s): R06.02 - SHORTNESS OF BREATH Assessment/Plan Rocephin/Zithromax Check urinary antigen Supplemental O2 as needed BD TX Short course of Medrol VTE prophylaxis No smoking was counseled Outpatient PFTs CT chest to follow lung nodule Sleep screen Thank you. Dr Brock
[2019-06-23 16:33] VITALS: BMI 24.7
--- NOTE | 2019-06-23 16:40 | PN ---
Progress Note (short form) - Note Progress Note: ID CONSULT DICTATED COMMUNITY ACQUIRED V. ATYPICAL PNEUMONIA AWAIT C/S EMPIRIC CEFTRIAXONE/ ZITHROMAX
[2019-06-23 17:28] LABS: URINE APPEARANCE CLEAR; URINE BILIRUBIN NEGATIVE (NEGATIVE); URINE COLOR YELLOW; URINE GLUCOSE (UA) NEGATIVE (NEGATIVE); URINE KETONE NEGATIVE (NEGATIVE); URINE LEUK ESTERASE NEGATIVE (NEGATIVE); URINE NITRITE NEGATIVE (NEGATIVE); URINE PROTEIN TRACE (NEGATIVE)
--- NOTE | 2019-06-23 18:22 | CONS ---
INFECTIOUS DISEASE CONSULTATION DATE OF CONSULTATION: DATE OF DICTATION: 06/23/2019 HISTORY: The patient is an 88-year-old male who was evaluated for pneumonia. He was admitted to the hospital on June 23, 2019, with complaints of chest pain. The patient had developed chest pain on the morning of admission. He presented to the emergency room where a chest x-ray showed right middle and right lower lobe infiltrates. He was empirically treated with Zithromax and ceftriaxone. The patient reports he is presently pain free. He reports abrupt onset of his chest pain, which was localized to the chest not associated with shortness of breath, cough, sputum production, or hemoptysis. The patient denies any ill contacts. He is a nonsmoker. No recent travel or hospitalizations. PAST MEDICAL HISTORY: Positive for coronary artery disease status post coronary artery stent, diabetes mellitus, hypertension, hypothyroidism, COPD, prostate cancer. ALLERGIES: No known allergies. MEDICATIONS: Include Tylenol, albuterol, Zithromax, Lipitor, ceftriaxone, Plavix, Imdur, Lopressor, Protonix, Seroquel. SOCIAL HISTORY: Patient resides in the community with family. He is a former smoker. He is originally from [place]. Has been living in the [facility] for many years. 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 SYSTEMS REVIEW: Neurologic: No loss of consciousness, seizure activity, or focal weakness. Cardiac: As per HPI. Respiratory: As per HPI. Gastrointestinal: Negative vomiting or diarrhea. Genitourinary: Negative for urinary tract infection. LABORATORY DATA: White count 13.4, hematocrit 31.2, platelets 300, BUN 19, creatinine 1.2. Total bilirubin 0.6, alkaline phosphatase 104, AST 23. Urinalysis pending. Influenza swab negative. PHYSICAL EXAMINATION: General: He is awake. Supine on the stretcher in the emergency room. Vital Signs: Temperature 98.4, blood pressure 129/57, pulse 94 regular, respirations 18 per minute. Breathing is nonlabored on nasal cannula. O2 saturation 96% on room air. HEENT: Sclerae anicteric. Heart: Sounds S1, S2. Lungs: Rales right mid and lower lung field. Abdomen: Soft and nontender. Extremities: Negative for edema. IMPRESSION: 1. Right middle lobe/right lower lobe community-acquired versus atypical pneumonia. 2. Leukocytosis rule out sepsis secondary to lung source. 3. History of chronic obstructive pulmonary disease. 4. Coronary artery disease status post coronary artery stent. PLAN: Obtain sputum culture, urine Legionella, and pneumococcal antigens. Empiric antibiotic coverage with Zithromax and ceftriaxone. Pulmonary evaluation. Further recommendations pending cultures. Thank you for the kind referral. SONY WATSON M.D. BARI/[id number]
[2019-06-23 18:25] LABS: IRON SERUM 12 ug/dL (50-175); TOTAL IRON BINDING CAPACITY 331 ug/dL (250-450)
[2019-06-23] MEDS ORDERED: SODIUM CHLORIDE 500 ML IV STA (22:00)
[2019-06-23] MEDS: ATORVASTATIN CA 20 MG TABLET (FP) PO SCH (22:32)
[2019-06-23] MEDS: QUEtiapine FUMARATE 25 MG TABLET PO SCH (22:32)
[2019-06-23] MEDS: MONTELUKAST NA 10 MG TABLET PO SCH (22:32)
[2019-06-23] MEDS: HEPARIN NA (PORCINE) 5,000 UNITS/ML 1ML VIAL SQ SCH (22:33)
[2019-06-24] MEDS: methylPREDNISolone NA SUCC 40 MG/1 ML VIAL IVPUSH SCH ×2 (02:28→15:10)
[2019-06-24] MEDS: ALBUTEROL SO4 2.5/IPRATROPIUM 0.5 INH SOL 3 ML VIAL.NEB. NEB SCH ×4 (08:00→20:39)
[2019-06-24 09:23] LABS: HEMATOCRIT 31.3 % (35.4-49); HEMOGLOBIN 10.2 GM/dL (11.7-16.9); LYMPH % 3.2 % (8-40); MCH 27.6 pg (25.7-33.7); MCHC 32.6 g/dl (32.0-35.9); MEAN CELL VOLUME 84.6 fl (80-96); MEAN PLT VOLUME 7.3 fl (7.5-11.1); MONO % 1.4 % (3.8-10.2); NEUT % 95.4 % (42.8-82.8); PLATELET COUNT 320 K/MM3 (134-434); RDW 14.5 % (11.9-15.9); WHITE BLOOD COUNT 15.3 K/mm3 (4.0-10.0)
[2019-06-24 09:58] LABS: ALBUMIN 3.2 g/dl (3.4-5.0); BILIRUBIN,TOTAL 0.4 mg/dL (0.2-1); BLOOD UREA NITROGEN 24.6 mg/dL (7-18); CALCIUM 8.7 mg/dL (8.5-10.1); CREATININE 1.2 mg/dL (0.55-1.3); POTASSIUM 3.7 mmol/L (3.5-5.1); TOT PROT 6.6 g/dl (6.4-8.2)
[2019-06-24] MEDS ORDERED: CEFTRIAXONE 1 GM in DEXTROSE 5%-WATER - 50 ML IVPB SCH (10:00)
[2019-06-24] MEDS ORDERED: DEXTROSE 5%-WATER 100 ML IVPB ONE (10:16)
[2019-06-24] MEDS: CLOPIDOGREL BISULFATE 75 MG TABLET (FP) PO SCH (10:21)
[2019-06-24] MEDS: TAMSULOSIN HCL 0.4 MG CAP PO SCH (10:21)
[2019-06-24] MEDS: METOPROLOL TARTRATE 50 MG TABLET (FP) PO SCH (10:21)
[2019-06-24] MEDS: HEPARIN NA (PORCINE) 5,000 UNITS/ML 1ML VIAL SQ SCH ×2 (10:21→21:49)
[2019-06-24] MEDS: CEFTRIAXONE 2 GM in DEXTROSE 5%-WATER 100 ML IVPB SCH (10:21)
[2019-06-24] MEDS: PANTOPRAZOLE 40 MG TABLET PO SCH (10:21)
[2019-06-24] MEDS: ISOSORBIDE MONONITRATE 30 MG TAB.SR.24H (FP) PO SCH (10:25)
[2019-06-24 11:11] LABS: PLATELET ESTIMATE NORMAL
[2019-06-24] MEDS: AZITHROMYCIN IVPB 250 MG in DEXTROSE 5%-WATER - 250 ML IVPB SCH (11:23)
--- NOTE | 2019-06-24 12:24 | PN ---
Progress Note, Physician History of Present Illness: pulmonary alert,sitting up in bed comfortable,-resp distress - Current Medication List Current Medications: Active Medications Acetaminophen/Codeine Phosphate (Tylenol # 3 -) 1 tab PO Q8H PRN PRN Reason: PAIN 1-3 Albuterol/Ipratropium (Duoneb -) 1 amp NEB RQID [facility] Last Admin: 06/23/19 20:20 Dose: 1 amp Atorvastatin Calcium (Lipitor -) 20 mg PO HS [facility] Last Admin: 06/23/19 22:32 Dose: 20 mg Clopidogrel Bisulfate (Plavix -) 75 mg PO DAILY [facility] Last Admin: 06/24/19 10:21 Dose: 75 mg Heparin Sodium (Porcine) (Heparin -) 5,000 unit SQ BID [facility] Last Admin: 06/24/19 10:21 Dose: 5,000 unit Azithromycin 250 mg/ Dextrose 250 mls @ 250 mls/hr IVPB DAILY [facility] Last Admin: 06/24/19 11:23 Dose: 250 mls/hr Ceftriaxone Sodium 2 gm/ (Dextrose) 100 mls @ 100 mls/hr IVPB DAILY [facility]; Protocol Last Admin: 06/24/19 10:21 Dose: 100 mls/hr Isosorbide Mononitrate (Imdur -) 30 mg PO DAILY [facility] Last Admin: 06/24/19 10:25 Dose: 30 mg Methylprednisolone Sodium Succinate (Solu-Medrol -) 40 mg IVPUSH Q12H [facility] Last Admin: 06/24/19 02:28 Dose: 40 mg Metoprolol Tartrate (Lopressor -) 50 mg PO DAILY [facility] Last Admin: 06/24/19 10:21 Dose: 50 mg Montelukast Sodium (Singulair -) 10 mg PO HS [facility] Last Admin: 06/23/19 22:32 Dose: 10 mg Pantoprazole Sodium (Protonix -) 40 mg PO DAILY [facility] Last Admin: 06/24/19 10:21 Dose: 40 mg Quetiapine Fumarate (Seroquel -) 50 mg PO HS [facility] Last Admin: 06/23/19 22:32 Dose: 50 mg Tamsulosin HCl (Flomax -) 0.4 mg PO DAILY@0830 [facility] Last Admin: 06/24/19 10:21 Dose: 0.4 mg - Objective Vital Signs: Vital Signs Temperature 98.2 F 06/24/19 06:00 Pulse Rate 89 06/24/19 06:00 Respiratory Rate 20 06/24/19 06:00 Blood Pressure 142/63 06/24/19 06:00 O2 Sat by Pulse Oximetry (%) 93 L 06/23/19 21:00 Constitutional: Yes: Well Nourished, Calm Eyes: Yes: WNL HENT: Yes: WNL Neck: Yes: WNL Cardiovascular: Yes: Regular Rate and Rhythm, S1, S2 Respiratory: Yes: Rhonchi (scattered rhonchi wheezes), Wheezes Gastrointestinal: Yes: Normal Bowel Sounds, Soft Extremities: Yes: WNL Edema: No Labs: CBC, BMP 06/24/19 08:45 06/24/19 08:45 INR, PTT INR 1.09 (0.83-1.09) 06/23/19 11:45 Assessment/Plan Problem List - Problems (1) Community acquired pneumonia Code(s): J18.9 - PNEUMONIA, UNSPECIFIED ORGANISM (2) Pulmonary nodule Code(s): R91.1 - SOLITARY PULMONARY NODULE (3) ASHD (arteriosclerotic heart disease) Code(s): I25.10 - ATHSCL HEART DISEASE OF [place] CORONARY ARTERY W/O ANG PCTRS (4) CHF (congestive heart failure) Code(s): I50.9 - HEART FAILURE, UNSPECIFIED (5) COPD (chronic obstructive pulmonary disease) Code(s): J44.9 - CHRONIC OBSTRUCTIVE PULMONARY DISEASE, UNSPECIFIED (6) Chest pain Code(s): R07.9 - CHEST PAIN, UNSPECIFIED (7) HLD (hyperlipidemia) Code(s): E78.5 - HYPERLIPIDEMIA, UNSPECIFIED (8) HTN (hypertension) Code(s): I10 - ESSENTIAL (PRIMARY) HYPERTENSION (9) Nephrolithiasis Code(s): N20.0 - CALCULUS OF KIDNEY (10) Pneumonia Code(s): J18.9 - PNEUMONIA, UNSPECIFIED ORGANISM (11) Prostate CA Code(s): C61 - MALIGNANT NEOPLASM OF PROSTATE (12) SOB (shortness of breath) Code(s): R06.02 - SHORTNESS OF BREATH 13 .PULMONARY NODULE NO CHANGE Assessment/Plan Rocephin/Zithromax Supplemental O2 as needed BD TX Medrol VTE prophylaxis No smoking was counseled Outpatient PFTs Sleep screen DR SIM
--- NOTE | 2019-06-24 14:26 | PN ---
Progress Note, Physician Chief Complaint: cough, chest pain - Current Medication List Current Medications: Active Medications Acetaminophen/Codeine Phosphate (Tylenol # 3 -) 1 tab PO Q8H PRN PRN Reason: PAIN 1-3 Albuterol/Ipratropium (Duoneb -) 1 amp NEB RQID [facility] Last Admin: 06/24/19 12:00 Dose: 1 amp Atorvastatin Calcium (Lipitor -) 20 mg PO HS [facility] Last Admin: 06/23/19 22:32 Dose: 20 mg Clopidogrel Bisulfate (Plavix -) 75 mg PO DAILY [facility] Last Admin: 06/24/19 10:21 Dose: 75 mg Heparin Sodium (Porcine) (Heparin -) 5,000 unit SQ BID [facility] Last Admin: 06/24/19 10:21 Dose: 5,000 unit Azithromycin 250 mg/ Dextrose 250 mls @ 250 mls/hr IVPB DAILY [facility] Last Admin: 06/24/19 11:23 Dose: 250 mls/hr Ceftriaxone Sodium 2 gm/ (Dextrose) 100 mls @ 100 mls/hr IVPB DAILY [facility]; Protocol Last Admin: 06/24/19 10:21 Dose: 100 mls/hr Isosorbide Mononitrate (Imdur -) 30 mg PO DAILY [facility] Last Admin: 06/24/19 10:25 Dose: 30 mg Methylprednisolone Sodium Succinate (Solu-Medrol -) 40 mg IVPUSH Q12H [facility] Last Admin: 06/24/19 02:28 Dose: 40 mg Metoprolol Tartrate (Lopressor -) 50 mg PO DAILY [facility] Last Admin: 06/24/19 10:21 Dose: 50 mg Montelukast Sodium (Singulair -) 10 mg PO HS [facility] Last Admin: 06/23/19 22:32 Dose: 10 mg Pantoprazole Sodium (Protonix -) 40 mg PO DAILY [facility] Last Admin: 06/24/19 10:21 Dose: 40 mg Quetiapine Fumarate (Seroquel -) 50 mg PO [facility] Last Admin: 06/23/19 22:32 Dose: 50 mg Tamsulosin HCl (Flomax -) 0.4 mg PO DAILY@0830 [facility] Last Admin: 06/24/19 10:21 Dose: 0.4 mg - Objective Vital Signs: Vital Signs Temperature 98.2 F 06/24/19 06:00 Pulse Rate 89 06/24/19 06:00 Respiratory Rate 20 06/23/20 06:00 Blood Pressure 142/63 06/24/19 06:00 O2 Sat by Pulse Oximetry (%) 93 L 06/23/19 21:00 Constitutional: Yes: Well Nourished, No Distress HENT: Yes: Atraumatic Neck: Yes: Supple, Trachea Midline Cardiovascular: Yes: Regular Rate and Rhythm Respiratory: Yes: Diminished Gastrointestinal: Yes: Normal Bowel Sounds, Soft Musculoskeletal: Yes: WNL Extremities: Yes: WNL Integumentary: Yes: WNL Neurological: Yes: Alert, Oriented Psychiatric: Yes: Alert, Oriented Labs: CBC, BMP 06/24/19 08:45 06/24/19 08:45 INR, PTT INR 1.09 (0.83-1.09) 06/23/19 11:45 Problem List - Problems (1) Sepsis Assessment/Plan: ID consult appreciated was given CAP coverage, azithro ceftriaxone in ED blood cultures pending Code(s): A41.9 - SEPSIS, UNSPECIFIED ORGANISM (2) Anemia Assessment/Plan: iron profile, b12, folate ordered iron low, venofer Code(s): D64.9 - ANEMIA, UNSPECIFIED (3) Chest pain Assessment/Plan: resolved cardiology consult appreciated likely pleuritic in nature enzymes negative Code(s): R07.9 - CHEST PAIN, UNSPECIFIED (4) HLD (hyperlipidemia) Assessment/Plan: continue statin Code(s): E78.5 - HYPERLIPIDEMIA, UNSPECIFIED (5) HTN (hypertension) Assessment/Plan: continue cardiac meds Code(s): I10 - ESSENTIAL (PRIMARY) HYPERTENSION (6) Pneumonia Assessment/Plan: IV antbx pulm following Code(s): J18.9 - PNEUMONIA, UNSPECIFIED ORGANISM (7) Pulmonary nodule Assessment/Plan: f/u imaging as outpatient Code(s): R91.1 - SOLITARY PULMONARY NODULE
[2019-06-24] MEDS ORDERED: IRON SUCROSE INJECTION 100 MG in SODIUM CHLORIDE 95 ML IVPB ONE (15:00)
[2019-06-24] MEDS: ATORVASTATIN CA 20 MG TABLET (FP) PO SCH (21:48)
[2019-06-24] MEDS: MONTELUKAST NA 10 MG TABLET PO SCH (21:48)
[2019-06-24] MEDS: QUEtiapine FUMARATE 25 MG TABLET PO SCH (21:48)
[2019-06-25] MEDS ORDERED: MELATONIN 5 MG TABLETS PO PRN (01:49)
[2019-06-25] MEDS: methylPREDNISolone NA SUCC 40 MG/1 ML VIAL IVPUSH SCH (02:00)
[2019-06-25] MEDS: ACETAMINOPHEN WITH CODEINE 300MG/30MG TABLET PO PRN ×2 (02:38→20:26)
[2019-06-25 08:10] LABS: BASO % 0.1 % (0-2.0); HEMATOCRIT 28.4 % (35.4-49); HEMOGLOBIN 9.3 GM/dL (11.7-16.9); LYMPH % 2.6 % (8-40); MCH 27.6 pg (25.7-33.7); MCHC 32.8 g/dl (32.0-35.9); MEAN CELL VOLUME 84.1 fl (80-96); MEAN PLT VOLUME 7.7 fl (7.5-11.1); MONO % 1.8 % (3.8-10.2); NEUT % 95.5 % (42.8-82.8); PLATELET COUNT 294 K/MM3 (134-434); RBC 3.37 M/mm3 (4.00-5.60); RDW 14.1 % (11.9-15.9); WHITE BLOOD COUNT 15.6 K/mm3 (4.0-10.0)
[2019-06-25 08:32] LABS: ALBUMIN 2.9 g/dl (3.4-5.0); BILIRUBIN,TOTAL 0.4 mg/dL (0.2-1); BLOOD UREA NITROGEN 34.7 mg/dL (7-18); CALCIUM 8.6 mg/dL (8.5-10.1); CREATININE 1.2 mg/dL (0.55-1.3); POTASSIUM 3.8 mmol/L (3.5-5.1); TOT PROT 6.2 g/dl (6.4-8.2)
[2019-06-25] MEDS: ALBUTEROL SO4 2.5/IPRATROPIUM 0.5 INH SOL 3 ML VIAL.NEB. NEB SCH ×4 (08:45→20:05)
[2019-06-25 09:24] LABS: ANISOCYTOSIS 0; MACROCYTOSIS 0; PLATELET ESTIMATE NORMAL
[2019-06-25] MEDS ORDERED: DEXTROSE 5%-WATER 100 ML IVPB ONE (10:03)
[2019-06-25] MEDS: PANTOPRAZOLE 40 MG TABLET PO SCH (10:09)
[2019-06-25] MEDS: ISOSORBIDE MONONITRATE 30 MG TAB.SR.24H (FP) PO SCH (10:09)
[2019-06-25] MEDS: CLOPIDOGREL BISULFATE 75 MG TABLET (FP) PO SCH (10:10)
[2019-06-25] MEDS: METOPROLOL TARTRATE 50 MG TABLET (FP) PO SCH (10:10)
[2019-06-25] MEDS: TAMSULOSIN HCL 0.4 MG CAP PO SCH (10:10)
[2019-06-25] MEDS: HEPARIN NA (PORCINE) 5,000 UNITS/ML 1ML VIAL SQ SCH ×2 (10:10→22:37)
[2019-06-25] MEDS: CEFTRIAXONE 2 GM in DEXTROSE 5%-WATER 100 ML IVPB SCH (10:13)
--- NOTE | 2019-06-25 10:21 | PN ---
Progress Note (short form) - Note Progress Note: Breathing and pleuritic type pain improving. No acute events overnight. Intake & Output 06/22/19 06/23/19 06/24/19 06/25/19 23:59 23:59 23:59 23:59 Intake Total 1280 1750 0 Balance 1280 1750 0 Weight 140 lb 0.3 oz Last Vital Signs Temp Pulse Resp BP Pulse Ox 98.2 F 76 18 136/62 95 06/25/19 06:00 06/25/19 10:00 06/25/19 10:00 06/25/19 10:00 06/24/19 21:00 Active Medications Acetaminophen/Codeine Phosphate (Tylenol # 3 -) 1 tab PO Q8H PRN PRN Reason: PAIN 1-3 Last Admin: 06/25/19 02:38 Dose: 1 tab Documented by: Albuterol/Ipratropium (Duoneb -) 1 amp NEB RQID [facility] Last Admin: 06/25/19 08:45 Dose: Not Given Documented by: Atorvastatin Calcium (Lipitor -) 20 mg PO HS [facility] Last Admin: 06/24/19 21:48 Dose: 20 mg Documented by: Clopidogrel Bisulfate (Plavix -) 75 mg PO DAILY [facility] Last Admin: 06/25/19 10:10 Dose: 75 mg Documented by: Heparin Sodium (Porcine) (Heparin -) 5,000 unit SQ BID [facility] Last Admin: 06/25/19 10:10 Dose: 5,000 unit Documented by: Azithromycin 250 mg/ Dextrose 250 mls @ 250 mls/hr IVPB DAILY [facility] Last Admin: 06/24/19 11:23 Dose: 250 mls/hr Documented by: Ceftriaxone Sodium 2 gm/ (Dextrose) 100 mls @ 100 mls/hr IVPB DAILY [facility]; Protocol Last Admin: 06/25/19 10:13 Dose: 100 mls/hr Documented by: Isosorbide Mononitrate (Imdur -) 30 mg PO DAILY [facility] Last Admin: 06/25/19 10:09 Dose: 30 mg Documented by: Melatonin (Melatonin) 5 mg PO HS PRN PRN Reason: INSOMNIA Last Admin: 06/25/19 02:00 Dose: 5 mg Documented by: Methylprednisolone Sodium Succinate (Solu-Medrol -) 40 mg IVPUSH Q12H [facility] Last Admin: 06/25/19 02:00 Dose: 40 mg Documented by: Metoprolol Tartrate (Lopressor -) 50 mg PO DAILY [facility] Last Admin: 06/25/19 10:10 Dose: 50 mg Documented by: Montelukast Sodium (Singulair -) 10 mg PO [facility] Last Admin: 06/24/19 21:48 Dose: 10 mg Documented by: Pantoprazole Sodium (Protonix -) 40 mg PO DAILY [facility] Last Admin: 06/25/19 10:09 Dose: 40 mg Documented by: Quetiapine Fumarate (Seroquel -) 50 mg PO [facility] Last Admin: 06/24/19 21:48 Dose: 50 mg Documented by: Tamsulosin HCl (Flomax -) 0.4 mg PO DAILY@0830 [facility] Last Admin: 06/25/19 10:10 Dose: 0.4 mg Documented by: Constitutional: Yes: Well Nourished, Calm Eyes: Yes: WNL HENT: Yes: WNL Neck: Yes: WNL Cardiovascular: Yes: Regular Rate and Rhythm, S1, S2 Respiratory: Yes: Bilateral scattered rhonchi Gastrointestinal: Yes: Normal Bowel Sounds, Soft Extremities: Yes: WNL Edema: No Labs: Laboratory Results - last 24 hr 06/24/19 06/25/19 06/25/19 08:45 07:30 07:30 WBC 15.6 H RBC 3.37 L Hgb 9.3 L Hct 28.4 L MCV 84.1 MCH 27.6 MCHC 32.8 RDW 14.1 Plt Count 294 MPV 7.7 Absolute Neuts (auto) 14.9 H Neutrophils % 95.5 H Neutrophils % (Manual) 95.0 H 95.0 H Band Neutrophils % 0.0 0.0 Lymphocytes % 2.6 L Lymphocytes % (Manual) 3.0 L D 4.0 L D Monocytes % 1.8 L Monocytes % (Manual) 2 L 1 L Eosinophils % 0.0 Eosinophils % (Manual) 0.0 D 0.0 Basophils % 0.1 D Basophils % (Manual) 0.0 0.0 Myelocytes % (Man) 0 0 Promyelocytes % (Man) 0 0 Blast Cells % (Manual) 0 0 Nucleated RBC % 0 0 Metamyelocytes 0 0 Hypochromia 0 Platelet Estimate Normal Normal Polychromasia 0 Poikilocytosis 0 Anisocytosis 0 Microcytosis 0 Macrocytosis 0 Sodium 141 Potassium 3.8 Chloride 106 Carbon Dioxide 28 Anion Gap 7 L BUN 34.7 H Creatinine 1.2 Est GFR (CKD-EPI)AfAm 63.08 Est GFR (CKD-EPI)NonAf 54.43 Random Glucose 155 H Calcium 8.6 Total Bilirubin 0.4 AST 33 ALT 36 Alkaline Phosphatase 60 Total Protein 6.2 L Albumin 2.9 L Assessment/Plan Problem List - Problems (1) Community acquired pneumonia Code(s): J18.9 - PNEUMONIA, UNSPECIFIED ORGANISM (2) Pulmonary nodule Code(s): R91.1 - SOLITARY PULMONARY NODULE (3) ASHD (arteriosclerotic heart disease) Code(s): I25.10 - ATHSCL HEART DISEASE OF [place] CORONARY ARTERY W/O ANG PCTRS (4) CHF (congestive heart failure) Code(s): I50.9 - HEART FAILURE, UNSPECIFIED (5) COPD (chronic obstructive pulmonary disease) Code(s): J44.9 - CHRONIC OBSTRUCTIVE PULMONARY DISEASE, UNSPECIFIED (6) Chest pain Code(s): R07.9 - CHEST PAIN, UNSPECIFIED (7) HLD (hyperlipidemia) Code(s): E78.5 - HYPERLIPIDEMIA, UNSPECIFIED (8) HTN (hypertension) Code(s): I10 - ESSENTIAL (PRIMARY) HYPERTENSION (9) Nephrolithiasis Code(s): N20.0 - CALCULUS OF KIDNEY (10) Pneumonia Code(s): J18.9 - PNEUMONIA, UNSPECIFIED ORGANISM (11) Prostate CA Code(s): C61 - MALIGNANT NEOPLASM OF PROSTATE (12) SOB (shortness of breath) Code(s): R06.02 - SHORTNESS OF BREATH 13 .PULMONARY NODULE NO CHANGE Assessment/Plan Rocephin/Zithromax Supplemental O2 as needed BD TX Medrol VTE prophylaxis No smoking was counseled Outpatient PFTs Sleep screen Dr Brock Problem List - Problems (1) Community acquired pneumonia Code(s): J18.9 - PNEUMONIA, UNSPECIFIED ORGANISM (2) Pulmonary nodule Code(s): R91.1 - SOLITARY PULMONARY NODULE (3) ASHD (arteriosclerotic heart disease) Code(s): I25.10 - ATHSCL HEART DISEASE OF [place] CORONARY ARTERY W/O ANG PCTRS (4) CHF (congestive heart failure) Code(s): I50.9 - HEART FAILURE, UNSPECIFIED (5) COPD (chronic obstructive pulmonary disease) Code(s): J44.9 - CHRONIC OBSTRUCTIVE PULMONARY DISEASE, UNSPECIFIED (6) Chest pain Code(s): R07.9 - CHEST PAIN, UNSPECIFIED (7) HLD (hyperlipidemia) Code(s): E78.5 - HYPERLIPIDEMIA, UNSPECIFIED (8) HTN (hypertension) Code(s): I10 - ESSENTIAL (PRIMARY) HYPERTENSION (9) Nephrolithiasis Code(s): N20.0 - CALCULUS OF KIDNEY (10) Pneumonia Code(s): J18.9 - PNEUMONIA, UNSPECIFIED ORGANISM (11) Prostate CA Code(s): C61 - MALIGNANT NEOPLASM OF PROSTATE (12) SOB (shortness of breath) Code(s): R06.02 - SHORTNESS OF BREATH
[2019-06-25] MEDS: AZITHROMYCIN IVPB 250 MG in DEXTROSE 5%-WATER - 250 ML IVPB SCH (11:55)
--- NOTE | 2019-06-25 14:08 | PN ---
Progress Note, Physician Chief Complaint: cough, chest pain did not sleep last night, irritable, anxious recevied melatonin without relief History of Present Illness: 88 year old male with pmh HTN, HLD, DM, CAD presents to the ED with pneumonia, being seen by cardiology, pulmonology, and ID. - Current Medication List Current Medications: Active Medications Acetaminophen/Codeine Phosphate (Tylenol # 3 -) 1 tab PO Q8H PRN PRN Reason: PAIN 1-3 Last Admin: 06/25/19 02:38 Dose: 1 tab Documented by: Albuterol/Ipratropium (Duoneb -) 1 amp NEB RQID [facility] Last Admin: 06/25/19 11:34 Dose: 1 amp Documented by: Atorvastatin Calcium (Lipitor -) 20 mg PO [facility] Last Admin: 06/24/19 21:48 Dose: 20 mg Documented by: Clopidogrel Bisulfate (Plavix -) 75 mg PO DAILY [facility] Last Admin: 06/25/19 10:10 Dose: 75 mg Documented by: Heparin Sodium (Porcine) (Heparin -) 5,000 unit SQ BID [facility] Last Admin: 06/25/19 10:10 Dose: 5,000 unit Documented by: Azithromycin 250 mg/ Dextrose 250 mls @ 250 mls/hr IVPB DAILY [facility] Last Admin: 06/25/19 11:55 Dose: 250 mls/hr Documented by: Ceftriaxone Sodium 2 gm/ (Dextrose) 100 mls @ 100 mls/hr IVPB DAILY [facility]; Protocol Last Admin: 06/25/19 10:13 Dose: 100 mls/hr Documented by: Isosorbide Mononitrate (Imdur -) 30 mg PO DAILY [facility] Last Admin: 06/25/19 10:09 Dose: 30 mg Documented by: Metoprolol Tartrate (Lopressor -) 50 mg PO DAILY [facility] Last Admin: 06/25/19 10:10 Dose: 50 mg Documented by: Montelukast Sodium (Singulair -) 10 mg PO [facility] Last Admin: 06/24/19 21:48 Dose: 10 mg Documented by: Pantoprazole Sodium (Protonix -) 40 mg PO DAILY [facility] Last Admin: 06/25/19 10:09 Dose: 40 mg Documented by: Quetiapine Fumarate (Seroquel -) 50 mg PO [facility] Last Admin: 06/24/19 21:48 Dose: 50 mg Documented by: Tamsulosin HCl (Flomax -) 0.4 mg PO DAILY@0830 [facility] Last Admin: 06/25/19 10:10 Dose: 0.4 mg Documented by: - Objective Vital Signs: Vital Signs Temperature 98.2 F 06/25/19 06:00 Pulse Rate 76 06/25/19 10:00 Respiratory Rate 18 06/25/19 10:00 Blood Pressure 136/62 06/25/19 10:00 O2 Sat by Pulse Oximetry (%) 94 L 06/25/19 09:00 Constitutional: Yes: Well Nourished, No Distress HENT: Yes: Atraumatic, Normocephalic Neck: Yes: Supple Respiratory: Yes: Regular, CTA Bilaterally Gastrointestinal: Yes: Normal Bowel Sounds, Soft Genitourinary: Yes: WNL Extremities: Yes: WNL Neurological: Yes: Alert, Oriented Labs: CBC, BMP 06/25/19 07:30 06/25/19 07:30 INR, PTT INR 1.09 (0.83-1.09) 06/23/19 11:45 Problem List - Problems (1) Pneumonia Assessment/Plan: IV antbx pulm following Code(s): J18.9 - PNEUMONIA, UNSPECIFIED ORGANISM (2) Sepsis Assessment/Plan: ID consult appreciated was given CAP coverage, azithro ceftriaxone in ED blood cultures pending Code(s): A41.9 - SEPSIS, UNSPECIFIED ORGANISM (3) Anemia Assessment/Plan: iron profile, b12, folate ordered iron low, venofer Code(s): D64.9 - ANEMIA, UNSPECIFIED (4) Chest pain Assessment/Plan: resolved cardiology consult appreciated likely pleuritic in nature enzymes negative Code(s): R07.9 - CHEST PAIN, UNSPECIFIED (5) HLD (hyperlipidemia) Assessment/Plan: continue statin Code(s): E78.5 - HYPERLIPIDEMIA, UNSPECIFIED (6) HTN (hypertension) Assessment/Plan: continue cardiac meds Code(s): I10 - ESSENTIAL (PRIMARY) HYPERTENSION (7) Pulmonary nodule Assessment/Plan: f/u imaging as outpatient Code(s): R91.1 - SOLITARY PULMONARY NODULE
[2019-06-25] MEDS ORDERED: QUEtiapine FUMARATE 100 MG TABLET (FP) PO SCH (22:00)
--- NOTE | 2019-06-25 22:27 | PN ---
Progress Note, Physician History of Present Illness: AWAKE, ALERT SUPINE IN BED BREATHING NON LABORED OCCASIONAL COUGH NO C/O CEHST PAIN/ DYSPNEA AFEBRILE SPUTUM NORMAL ANI LEGIONELLA AG (-) - Current Medication List Current Medications: Active Medications Acetaminophen/Codeine Phosphate (Tylenol # 3 -) 1 tab PO Q8H PRN PRN Reason: PAIN 1-3 Last Admin: 06/25/19 20:26 Dose: 1 tab Documented by: Albuterol/Ipratropium (Duoneb -) 1 amp NEB RQID [facility] Last Admin: 06/25/19 20:05 Dose: 1 amp Documented by: Atorvastatin Calcium (Lipitor -) 20 mg PO [facility] Last Admin: 06/24/19 21:48 Dose: 20 mg Documented by: Clopidogrel Bisulfate (Plavix -) 75 mg PO DAILY [facility] Last Admin: 06/25/19 10:10 Dose: 75 mg Documented by: Heparin Sodium (Porcine) (Heparin -) 5,000 unit SQ BID [facility] Last Admin: 06/25/19 10:10 Dose: 5,000 unit Documented by: Azithromycin 250 mg/ Dextrose 250 mls @ 250 mls/hr IVPB DAILY [facility] Last Admin: 06/25/19 11:55 Dose: 250 mls/hr Documented by: Ceftriaxone Sodium 2 gm/ (Dextrose) 100 mls @ 100 mls/hr IVPB DAILY [facility]; Protocol Last Admin: 06/25/19 10:13 Dose: 100 mls/hr Documented by: Isosorbide Mononitrate (Imdur -) 30 mg PO DAILY [facility] Last Admin: 06/25/19 10:09 Dose: 30 mg Documented by: Metoprolol Tartrate (Lopressor -) 50 mg PO DAILY [facility] Last Admin: 06/25/19 10:10 Dose: 50 mg Documented by: Montelukast Sodium (Singulair -) 10 mg PO [facility] Last Admin: 06/24/19 21:48 Dose: 10 mg Documented by: Pantoprazole Sodium (Protonix -) 40 mg PO DAILY [facility] Last Admin: 06/25/19 10:09 Dose: 40 mg Documented by: Prednisone (Deltasone -) 40 mg PO DAILY [facility] Quetiapine Fumarate (Seroquel -) 100 mg PO [facility] Tamsulosin HCl (Flomax -) 0.4 mg PO DAILY@0830 [facility] Last Admin: 06/25/19 10:10 Dose: 0.4 mg Documented by: - Objective Vital Signs: Vital Signs Temperature 98.3 F 06/25/19 18:08 Pulse Rate 71 06/25/19 18:08 Respiratory Rate 18 06/25/19 18:08 Blood Pressure 118/43 L 06/25/19 18:08 O2 Sat by Pulse Oximetry (%) 94 L 06/25/19 09:00 Constitutional: Yes: No Distress Eyes: Yes: Conjunctiva Clear Cardiovascular: Yes: Regular Rate and Rhythm, S1, S2 Respiratory: Yes: Rhonchi Gastrointestinal: Yes: Normal Bowel Sounds, Soft Edema: No Labs: CBC, BMP 06/25/19 07:30 06/25/19 07:30 INR, PTT INR 1.09 (0.83-1.09) 06/23/19 11:45 Assessment/Plan COMMUNITY ACQUIRED V. ATYPICAL PNEUMONIA LACTIC ACIDOSIS RESOLVED CONTINUE EMPIRIC CEFTRIAXONE/ ZITHROMAX
[2019-06-25] MEDS: MONTELUKAST NA 10 MG TABLET PO SCH (22:36)
[2019-06-25] MEDS: ATORVASTATIN CA 20 MG TABLET (FP) PO SCH (22:36)
[2019-06-26] MEDS: ALBUTEROL SO4 2.5/IPRATROPIUM 0.5 INH SOL 3 ML VIAL.NEB. NEB SCH ×3 (08:00→15:42)
[2019-06-26 08:17] LABS: BASO % 0.2 % (0-2.0); HEMATOCRIT 27.6 % (35.4-49); HEMOGLOBIN 9.3 GM/dL (11.7-16.9); LYMPH % 14.2 % (8-40); MCH 28.1 pg (25.7-33.7); MCHC 33.7 g/dl (32.0-35.9); MEAN CELL VOLUME 83.6 fl (80-96); MEAN PLT VOLUME 7.5 fl (7.5-11.1); MONO % 5.2 % (3.8-10.2); NEUT % 80.4 % (42.8-82.8); PLATELET COUNT 259 K/MM3 (134-434); RBC 3.31 M/mm3 (4.00-5.60); RDW 14.2 % (11.9-15.9); WHITE BLOOD COUNT 8.9 K/mm3 (4.0-10.0)
[2019-06-26 09:12] LABS: ALBUMIN 2.9 g/dl (3.4-5.0); BILIRUBIN,TOTAL 0.4 mg/dL (0.2-1); BLOOD UREA NITROGEN 33.1 mg/dL (7-18); CALCIUM 8.3 mg/dL (8.5-10.1); CREATININE 1.2 mg/dL (0.55-1.3); TOT PROT 5.8 g/dl (6.4-8.2)
[2019-06-26] MEDS: TAMSULOSIN HCL 0.4 MG CAP PO SCH (09:14)
[2019-06-26] MEDS ORDERED: predniSONE 20 MG TABLET (UD) PO SCH (10:00)
[2019-06-26] MEDS ORDERED: DEXTROSE 5%-WATER 100 ML IVPB ONE (10:18)
[2019-06-26] MEDS: ISOSORBIDE MONONITRATE 30 MG TAB.SR.24H (FP) PO SCH (10:30)
[2019-06-26] MEDS: HEPARIN NA (PORCINE) 5,000 UNITS/ML 1ML VIAL SQ SCH (10:30)
[2019-06-26] MEDS: CLOPIDOGREL BISULFATE 75 MG TABLET (FP) PO SCH (10:30)
[2019-06-26] MEDS: METOPROLOL TARTRATE 50 MG TABLET (FP) PO SCH (10:30)
[2019-06-26] MEDS: PANTOPRAZOLE 40 MG TABLET PO SCH (10:30)
[2019-06-26] MEDS: CEFTRIAXONE 2 GM in DEXTROSE 5%-WATER 100 ML IVPB SCH (10:31)
[2019-06-26] MEDS: AZITHROMYCIN IVPB 250 MG in DEXTROSE 5%-WATER - 250 ML IVPB SCH ×2 (11:35→14:09)
[2019-06-26] MEDS ORDERED: AZITHROMYCIN 250 MG TABLET PO ONE (13:53)
--- NOTE | 2019-06-26 13:56 | PN ---
Progress Note, Physician History of Present Illness: PULMONARY ALERT,COMFORTABLE,-SOB,SITTING UP IN BED - Current Medication List Current Medications: Active Medications Albuterol/Ipratropium (Duoneb -) 1 amp NEB RQID [facility] Last Admin: 06/26/19 12:03 Dose: Not Given Documented by: Atorvastatin Calcium (Lipitor -) 20 mg PO [facility] Last Admin: 06/25/19 22:36 Dose: 20 mg Documented by: Clopidogrel Bisulfate (Plavix -) 75 mg PO DAILY [facility] Last Admin: 06/26/19 10:30 Dose: 75 mg Documented by: Heparin Sodium (Porcine) (Heparin -) 5,000 unit SQ BID [facility] Last Admin: 06/26/19 10:30 Dose: 5,000 unit Documented by: Ceftriaxone Sodium 2 gm/ (Dextrose) 100 mls @ 100 mls/hr IVPB DAILY [facility]; P rotocol Last Admin: 06/26/19 10:31 Dose: 100 mls/hr Documented by: Isosorbide Mononitrate (Imdur -) 30 mg PO DAILY [facility] Last Admin: 06/26/19 10:30 Dose: 30 mg Documented by: Metoprolol Tartrate (Lopressor -) 50 mg PO DAILY [facility] Last Admin: 06/26/19 10:30 Dose: 50 mg Documented by: Montelukast Sodium (Singulair -) 10 mg PO [facility] Last Admin: 06/25/19 22:36 Dose: 10 mg Documented by: Pantoprazole Sodium (Protonix -) 40 mg PO DAILY [facility] Last Admin: 06/26/19 10:30 Dose: 40 mg Documented by: Prednisone (Deltasone -) 40 mg PO DAILY [facility] Last Admin: 06/26/19 10:30 Dose: 40 mg Documented by: Quetiapine Fumarate (Seroquel -) 100 mg PO [facility] Last Admin: 06/25/19 22:36 Dose: 100 mg Documented by: Tamsulosin HCl (Flomax -) 0.4 mg PO DAILY@0830 [facility] Last Admin: 06/26/19 09:14 Dose: 0.4 mg Documented by: - Objective Vital Signs: Vital Signs Temperature 98.7 F 06/26/19 10:27 Pulse Rate 73 06/26/19 10:27 Respiratory Rate 20 06/26/19 10:27 Blood Pressure 141/61 03/06/20 10:27 O2 Sat by Pulse Oximetry (%) 98 06/26/19 10:40 Constitutional: Yes: Well Nourished, Calm Eyes: Yes: WNL HENT: Yes: WNL Neck: Yes: WNL Cardiovascular: Yes: Regular Rate and Rhythm, S1, S2 Respiratory: Yes: Rhonchi (FEW RHONCHI) Gastrointestinal: Yes: Normal Bowel Sounds, Soft Extremities: Yes: WNL Edema: No Labs: CBC, BMP 06/26/19 07:45 06/26/19 07:45 INR, PTT INR 1.09 (0.83-1.09) 06/23/19 11:45 Assessment/Plan Problem List - Problems (1) Community acquired pneumonia Code(s): J18.9 - PNEUMONIA, UNSPECIFIED ORGANISM (2) Pulmonary nodule Code(s): R91.1 - SOLITARY PULMONARY NODULE (3) ASHD (arteriosclerotic heart disease) Code(s): I25.10 - ATHSCL HEART DISEASE OF [place] CORONARY ARTERY W/O ANG PCTRS (4) CHF (congestive heart failure) Code(s): I50.9 - HEART FAILURE, UNSPECIFIED (5) COPD (chronic obstructive pulmonary disease) Code(s): J44.9 - CHRONIC OBSTRUCTIVE PULMONARY DISEASE, UNSPECIFIED (6) Chest pain Code(s): R07.9 - CHEST PAIN, UNSPECIFIED (7) HLD (hyperlipidemia) Code(s): E78.5 - HYPERLIPIDEMIA, UNSPECIFIED (8) HTN (hypertension) Code(s): I10 - ESSENTIAL (PRIMARY) HYPERTENSION (9) Nephrolithiasis Code(s): N20.0 - CALCULUS OF KIDNEY (10) Pneumonia Code(s): J18.9 - PNEUMONIA, UNSPECIFIED ORGANISM (11) Prostate CA Code(s): C61 - MALIGNANT NEOPLASM OF PROSTATE (12) SOB (shortness of breath) Code(s): R06.02 - SHORTNESS OF BREATH 13 .PULMONARY NODULE NO CHANGE Assessment/Plan Rocephin/Zithromax Supplemental O2 as needed BD TX Prednisone VTE prophylaxis No smoking was counseled Outpatient PFTs Sleep screen DR SIM
--- NOTE | 2019-06-26 14:05 | DS ---
Physical Examination Vital Signs: Vital Signs Temperature 98.7 F 06/26/19 10:27 Pulse Rate 73 06/26/19 10:27 Respiratory Rate 20 06/26/19 10:27 Blood Pressure 141/61 06/26/19 10:27 O2 Sat by Pulse Oximetry (%) 98 06/26/19 10:40 Constitutional: Yes: Well Nourished, No Distress HENT: Yes: Atraumatic, Normocephalic Neck: Yes: Supple Cardiovascular: Yes: Regular Rate and Rhythm Respiratory: Yes: Regular Gastrointestinal: Yes: Normal Bowel Sounds, Soft Extremities: Yes: WNL Neurological: Yes: Alert, Oriented Labs: CBC, BMP 06/26/19 07:45 06/26/19 07:45 Discharge Summary Problems reviewed: Yes Reason For Visit: COPD,PNEUMONIA Current Active Problems COPD (chronic obstructive pulmonary disease) (Acute) Community acquired pneumonia (Acute) Pneumonia (Acute) Pulmonary nodule (Acute) Sepsis (Acute) Hospital Course: (1) Pneumonia Assessment/Plan: IV antbx pulm following Code(s): J18.9 - PNEUMONIA, UNSPECIFIED ORGANISM (2) Sepsis Assessment/Plan: ID consult appreciated was given CAP coverage, azithro ceftriaxone in ED blood cultures pending Code(s): A41.9 - SEPSIS, UNSPECIFIED ORGANISM (3) Anemia Assessment/Plan: iron profile, b12, folate ordered iron low, venofer Code(s): D64.9 - ANEMIA, UNSPECIFIED (4) Chest pain Assessment/Plan: resolved cardiology consult appreciated likely pleuritic in nature enzymes negative Code(s): R07.9 - CHEST PAIN, UNSPECIFIED (5) HLD (hyperlipidemia) Assessment/Plan: continue statin Code(s): E78.5 - HYPERLIPIDEMIA, UNSPECIFIED (6) HTN (hypertension) Assessment/Plan: continue cardiac meds Code(s): I10 - ESSENTIAL (PRIMARY) HYPERTENSION (7) Pulmonary nodule Assessment/Plan: f/u imaging as outpatient Code(s): R91.1 - SOLITARY PULMONARY NODULE Condition: Improved - Instructions Referrals: Vinay Pacheco [Primary Care Provider] - Disposition: HOME - Home Medications Comprehensive Discharge Medication List: Ambulatory Orders Amlodipine Bes/Olmesartan Med [Ericka 5-20 mg Tablet] 1 each PO DAILY 03/24/15 Montelukast Na [Singulair -] 10 mg PO HS 03/24/15 Lubiprostone [Amitiza] 24 mcg PO DAILY 08/29/15 Quetiapine Fumarate [Seroquel -] 50 mg PO HS 08/29/15 Acetaminophen with Codeine [Tylenol with Codeine #3 Tablet] 1 each PO TID PRN 06/17/19 Atorvastatin Calcium [Lipitor] 20 mg PO HS 06/17/19 Clopidogrel Bisulfate [Clopidogrel] 75 mg PO DAILY 06/17/19 Isosorbide Mononitrate [Isosorbide Mononitrate ER] 30 mg PO DAILY 06/17/19 Tamsulosin HCl [Flomax] 0.4 mg PO DAILY 06/17/19 Mecobal/Levomefolat Ca/B6 Phos [Foltanx Tablet] 1 each PO DAILY 06/23/19 Metoprolol Tartrate 50 mg PO DAILY 06/23/19 Multivitamin [Multiple Vitamins] 1 each PO DAILY 06/23/19 Nitroglycerin Sublingual [Nitrostat -] 0.4 mg SL DAILY PRN 06/23/19 Pantoprazole Sodium 40 mg PO DAILY 06/23/19 Azithromycin 250 mg PO DAILY #2 tablet 06/26/19 Cefuroxime Axetil [Ceftin -] 500 mg PO Q12H #6 tablet 06/26/19 Gabapentin [Neurontin] 300 mg PO TID 06/26/19 predniSONE [Deltasone -] 10 mg PO ASDIR #10 tab 06/26/19 Prescription Drug Monitoring Program (I-STOP) results: I-STOP not reviewed
[2019-06-26 15:29] VITALS: BP 148/75; PULSE 77; TEMP 98.1
== END 2019-06-26 15:54 | disposition home or self-care (01) | DRG 871 ==
LOC: JER 06:33 → JERBED 10:08 → J5S 12:02
PROVIDERS: ADMIT Family Medicine; ATTEND Family Medicine
DX: A41.9 Sepsis, unspecified organism (principal); J18.9 Pneumonia, unspecified organism; E87.2 Acidosis; N17.9 Acute kidney failure, unspecified; D72.829 Elevated white blood cell count, unspecified; E11.9 Type 2 diabetes mellitus without complications; I25.10 Atherosclerotic heart disease of native coronary artery without angina pectoris; R07.89 Other chest pain; D64.9 Anemia, unspecified; E78.5 Hyperlipidemia, unspecified; N18.9 Chronic kidney disease, unspecified; R91.1 Solitary pulmonary nodule; J44.9 Chronic obstructive pulmonary disease, unspecified; I10 Essential (primary) hypertension; Z95.5 Presence of coronary angioplasty implant and graft; K21.9 Gastro-esophageal reflux disease without esophagitis
CPT/HCPCS: 36415; 71045-TC-FY; 71250-TC; 80053; 81003; 82550; 82607; 82746; 83540; 83550; 83605; 84484; 85025; 85610; 85730; 87040; 87070; 87086; 87205; 87804; 87899; 93005; 93010; 94640; 97116-GP; 97161-GP; 99285-25; J1644; J1756; J7030